=== PATIENT | male | born 1985 | race Caucasian/White ===

== ENCOUNTER 2017-02-08 12:14 | Emergency (ER) | payer OTHER ==
[2017-02-08 12:22] VITALS: BP 114/71
--- NOTE | 2017-02-08 13:32 | ED Physician Documentation ---
PD HPI MALE - Stated complaint Stated Complaint: LOWER ABD PX - Chief complaint Chief Complaint: Abd Pain - History obtained from History obtained from: Patient - History of Present Illness Timing - onset: How many months ago (2-3 months ago has noted small lump right inguinal area tender at times. It is more tender and larger the past several days. He/his thinks it is a hernia.) Timing - details: Gradual onset, Waxing and waning Associated symptoms: No: Dysuria, Genital sore / lesion, Testiclar pain, Scrotal swelling, Abdominal pain Similar symptoms before: Has not had sx before Recently seen: Not recently seen Review of Systems Constitutional: denies: Fever, Chills : denies: Dysuria, Frequency, Discharge, Testicular pain, Testicular mass Musculoskeletal: denies: Back pain PD PAST MEDICAL HISTORY - Past Medical History Past Medical History: No GI: GERD - Past Surgical History Past Surgical History: No - Present Medications Home Medications: Ambulatory Orders Medication Instructions Recorded Confirmed Gerd Medication 02/08/17 Naproxen [Naprosyn] 500 mg PO BID #20 tablet 02/08/17 Nystatin Cream [Mycostatin Cream] 1 applic TOP BID #1 tube 02/08/17 Sulfamethox/Trimeth 800/160 1 each PO BID #14 tablet 02/08/17 [Bactrim Ds 800/160] - Allergies Allergies/Adverse Reactions: Allergies Allergy/AdvReac Type Severity Reaction Status Date / Time No Known Drug Allergies Allergy Verified 02/08/17 12:22 - Social History Does the pt smoke?: No Smoking Status: Never smoker Does the pt drink ETOH?: No Does the pt have substance abuse?: No - Immunizations Immunizations are current?: Yes PD ED PE NORMAL - Vitals Vital signs reviewed: Yes - General General: Alert and oriented X 3, No acute distress, Well developed/nourished - Abdomen Abdomen: Soft, Non tender - Male Male : Other (testicles and scrotum not tender. Inguinal area with some redness in crease. I feel adenopathy in inguinal area and crural area, with redness and induration. No fluctuance. I don't feel hernia per se (in standing position).) Results - Rads (name of study) U/S Radiology: Prelim report reviewed (no hernia) PD MEDICAL DECISION MAKING - ED course Complexity details: reviewed results (U/S shows no hernia nor any report of abscess. ), considered differential, d/w patient Departure - Departure Disposition: 01 Home, Self Care Clinical Impression: Skin infection Inguinal pain Qualifiers: Laterality: right Qualified Code(s): R10.31 - Right lower quadrant pain Clinical Impression: (Ruled Out): Inguinal hernia Condition: Stable Record reviewed to determine appropriate education?: Yes Instructions: ED Infec Skin Cellulitis Follow-Up: Tony Smith MD [Primary Care Provider] - Prescriptions: Naproxen [Naprosyn] 500 mg PO BID #20 tablet Nystatin Cream [Mycostatin Cream] 1 applic TOP BID #1 tube Sulfamethox/Trimeth 800/160 [Bactrim Ds 800/160] 1 each PO BID #14 tablet Comments: The ultrasound did not show any hernia. It did not show an abscess. There is redness tenderness and swelling however in the area and so looks like a skin infection with underlying inflammation. Will use some antibiotics and anti- inflammatories orally. The redness in the crease appears likely to be a yeast infection initially and so some topical antifungal. Recheck if not improved over the next 2-3 days. Use some warm towels to the area to increase blood flow and promote healing. Discharge Date/Time: 02/08/17 15:25
[2017-02-08] MEDS ORDERED: SULFAMETH/TRIMETH DS 800/160 MG TABLET PO STA (14:04)
[2017-02-08] MEDS ORDERED: IBUPROFEN 600 MG TABLET PO STA (14:04)
[2017-02-08] MEDS ORDERED: SULFAMETH/TRIMETH DS 800/160 MG TABLET PO ONE (14:20)
[2017-02-08] MEDS ORDERED: IBUPROFEN 600 MG TABLET PO ONE (14:20)
--- NOTE | 2017-02-10 12:17 | Ultrasound Report ---
RIGHT INGUINAL ULTRASOUND: 02/08/2017 COMPARISON: No comparisons. INDICATION: Right inguinal swelling and tenderness. Rule out hernia. TECHNIQUE: Sonographic evaluation of the right inguinal region was performed. FINDINGS: No evidence of hernia. No mass or adenopathy demonstrated. No soft tissue swelling is se en. IMPRESSION: NO EVIDENCE OF INGUINAL HERNIA. JOB #: [id number] EXT JOB #:[id number]
== END 2017-02-08 15:25 | disposition home or self-care (01) ==
LOC: ED 12:14
DX: R10.31 Right lower quadrant pain (principal); L98.9 Disorder of the skin and subcutaneous tissue, unspecified; K21.9 Gastro-esophageal reflux disease without esophagitis
CPT/HCPCS: 76705; 99283; A9270

== ENCOUNTER 2017-04-21 10:16 | Emergency (ER) | payer OTHER ==
[2017-04-21] MEDS ORDERED: ONDANSETRON 4 MG/2 ML VIAL IVP STA (10:48)
[2017-04-21] MEDS ORDERED: FAMOTIDINE 20 MG/50 ML 50 ML IV ONE (10:48)
--- NOTE | 2017-04-21 10:50 | ED Physician Documentation ---
History of Present Illness - Stated complaint Stated Complaint: VOMITTIN,DIARRHEA,ABD PX - Chief complaint Chief Complaint: Abd Pain - Additonal information Additional information: hx from pt 31 male healthy except GERD no prior surgeries NVD q10 min since 9PM last night no blood in vomit or diarrhea burning upper abd pain no fever no bad food no travel no sick contacts no recent ab Review of Systems Constitutional: denies: Fever Cardiac: denies: Chest pain / pressure Respiratory: denies: Dyspnea GI: reports: Abdominal Pain, Nausea, Vomiting, Diarrhea Musculoskeletal: denies: Back pain Endocrine: denies: Easy bruising / bleeding Immunocompromised: denies: Immunocompromised PD PAST MEDICAL HISTORY - Past Medical History GI: GERD - Past Surgical History Past Surgical History: No - Present Medications Home Medications: Ambulatory Orders Medication Instructions Recorded Confirmed Ondansetron Odt [Zofran] 4 mg TL Q6H PRN #10 tablet 04/21/17 Ranitidine HCl [Acid Sample Cutter] 150 mg PO BID 04/21/17 04/21/17 Sucralfate 1 gm PO ACHS #120 tablet 04/21/17 raNITIdine [Zantac] 150 mg PO BID #60 tablet 04/21/17 - Allergies Allergies/Adverse Reactions: Allergies Allergy/AdvReac Type Severity Reaction Status Date / Time No Known Drug Allergies Allergy Verified 02/08/17 12:22 - Social History Does the pt smoke?: No Smoking Status: Never smoker Does the pt drink ETOH?: No Does the pt have substance abuse?: No - Immunizations Immunizations are current?: Yes PD ED PE NORMAL - Vitals Vital signs reviewed: Yes - General General: Alert and oriented X 3 - HEENT HEENT: PERRL - Neck Neck: Supple, no meningeal sign - Cardiac Cardiac: RRR - Respiratory Respiratory: No respiratory distress, Clear bilaterally - Abdomen Abdomen: Soft, Other (mod TTP mid epigastric and less so diffusely, no rebound or guarding) - Derm Derm: Normal color - Neuro Neuro: Alert and oriented X 3 Results - Vitals Vitals: Vital Signs - 24 hr 04/21/17 04/21/17 10:21 12:21 Temperature 35.9 C L 37.1 C Heart Rate 93 87 Respiratory 22 18 Rate Blood Pressure 155/95 H 122/73 O2 Saturation 100 98 Oxygen O2 Source Room air - Labs Labs: Laboratory Tests 04/21/17 04/21/17 10:30 10:30 WBC 18.7 H RBC 5.21 Hgb 15.9 Hct 46.8 MCV 89.8 MCH 30.4 MCHC 33.9 RDW 13.6 Plt Count 345 MPV 8.1 Neut # 16.6 H Lymph # 1.3 L [place] # 0.6 Eos # 0.1 Baso # 0.1 Absolute Nucleated RBC 0.01 Nucleated RBC % 0.1 Sodium 138 Potassium 3.8 Chloride 102 Carbon Dioxide 22 Anion Gap 14.0 H BUN 16 Creatinine 1.1 Estimated GFR (MDRD) 78 L Glucose 161 H Calcium 9.9 Total Bilirubin 1.1 H AST 26 ALT 29 Alkaline Phosphatase 81 Total Protein 9.1 H Albumin 5.2 Globulin 3.9 Albumin/Globulin Ratio 1.3 Lipase 19 L - Rads (name of study) abd sono Radiology: See rad report (mild hepatic steatosis) PD MEDICAL DECISION MAKING - ED course ED course: sounds like acute viral AGE diffuse TTP s surgical peritoneal findings got a ruq sono to rule out biliary dz and it is fine WBC noted - can be c/w viral infection too elev glucose likely stress rxn needs fup fasting FSBS Departure - Departure Disposition: 01 Home, Self Care Clinical Impression: Gastroenteritis Condition: Good Instructions: ED Gastroenteritis Vs Food Poison Prescriptions: Ondansetron Odt [Zofran] 4 mg TL Q6H PRN #10 tablet PRN Reason: Nausea / Vomiting raNITIdine [Zantac] 150 mg PO BID #60 tablet Sucralfate 1 gm PO ACHS #120 tablet Comments: Your labs were fine except for an elevated white blood cell count which is consistent with an infection and an elevated glucose which is likely a stress reaction due you being sick. I would like you to please follow up with your PMD to recheck the glucose level when you are feeling better The ultrasound was fine too. I think you have a viral stomach flu. Now that you are feeling better I think it is OK for you to go home with medications t ease your sympotms. Please drink lots of fluids and rest as much as possible. Follow up with your PMD for a recheck if not better by tomorrow. Return to the ER if worse Forms: Activity restrictions
[2017-04-21 10:55] LABS: BASOPHILS # (AUTO) 0.1 10^3/uL (0.0-0.1); BASOPHILS % (AUTO) 0.5 %; EOSINOPHILS # (AUTO) 0.1 10^3/uL (0.0-0.7); EOSINOPHILS % (AUTO) 0.3 %; HGB - HEMOGLOBIN 15.9 g/dL (14.0-18.0); LYMPHOCYTES # (AUTO) 1.3 10^3/uL (1.5-3.5); MEAN CORPUSCULAR HEMOGLOBIN 30.4 pg (27.0-31.0); MEAN CORPUSCULAR HGB CONC 33.9 g/dL (32.0-36.0); MEAN CORPUSCULAR VOLUME 89.8 fL (80.0-94.0); MEAN PLATELET VOLUME 8.1 fL (7.4-11.4); MONOCYTES # (AUTO) 0.6 10^3/uL (0.0-1.0); MONOCYTES % (AUTO) 3.1 %; NEUTROPHILS # (AUTO) 16.6 10^3/uL (1.5-6.6); NEUTROPHILS % (AUTO) 89.1 %; PLT - PLATELET COUNT 345 10^3/uL (130-450); RED BLOOD COUNT 5.21 10^6/uL (4.70-6.10); RED CELL DISTRIBUTION WIDTH 13.6 % (12.0-15.0); WHITE BLOOD COUNT 18.7 x10^3/uL (4.8-10.8)
[2017-04-21] MEDS ORDERED: SODIUM CHLORIDE 0.9% 1,000 ML IV ONE (10:56)
[2017-04-21 11:06] LABS: ALBUMIN 5.2 g/dL (3.2-5.5); ALBUMIN/GLOBULIN RATIO 1.3 (1.0-2.2); BILIRUBIN,TOTAL 1.1 mg/dL (0.2-1.0); CALCIUM 9.9 mg/dL (8.5-10.3); CREATININE 1.1 mg/dL (0.6-1.2); TOTAL PROTEIN 9.1 g/dL (6.7-8.2)
[2017-04-21 12:22] VITALS: BP 122/73
--- NOTE | 2017-04-22 11:41 | Ultrasound Report ---
DATE OF SERVICE: 04/21/2017 RIGHT UPPER QUADRANT ULTRASOUND: 04/21/2017 COMPARISON: No similar studies for comparison. INDICATION: Upper abdominal pain and vomiting. TECHNIQUE: Sonographic evaluation of the right upper quadrant was performed. FINDINGS: The liver is slightly echogenic and heterogeneous. Normal hepatic contour without visualized masses. Portal venous flow is directed toward the liver. There is no ascites. The gallbladder appears unremarkable without stones, wall thickening, or adjacent fluid. The pancreas is not well evaluated due to overlying bowel gas. The right kidney appears grossly unremarkable without evidence of hydronephrosis. IMPRESSION: MILD HEPATIC STEATOSIS. OTHERWISE NEGATIVE RIGHT UPPER QUADRANT ULTRASOUND. TD: 04/21/2017 14:07 HERMES
== END 2017-04-21 12:56 | disposition home or self-care (01) ==
LOC: ED 10:16
DX: K52.9 Noninfective gastroenteritis and colitis, unspecified (principal); K21.9 Gastro-esophageal reflux disease without esophagitis
CPT/HCPCS: 36415; 76705; 80053; 83690; 85025; 96361; 96365; 96375; 99283

== ENCOUNTER 2017-07-23 20:03 | Emergency (ER) | payer OTHER ==
[2017-07-23] MEDS ORDERED: HYDROcod/ACET 5/325 Prepack 4 PO STA (20:44)
[2017-07-23] MEDS ORDERED: KETOROLAC 60 MG/2 ML VIAL IM STA (20:44)
[2017-07-23] MEDS ORDERED: HYDROmorphone 1 MG/ML CARPUJECT IM STA (20:44)
--- NOTE | 2017-07-23 20:47 | ED Physician Documentation ---
PD HPI BACK INJURY - Stated complaint Stated Complaint: BACK PX - History obtained from History obtained from: Patient - History of Present Illness Location: Other (He pulled his back while lifting something at work yesterday and has had increasing mid back pain ever since that does not radiate. There is no weakness, numbness, or tingling of the extremities or saddle area, no incontinence or fevers. He does not have a history of back pain.) Review of Systems Constitutional: reports: Reviewed and negative Cardiac: denies: Chest pain / pressure, Palpitations Respiratory: denies: Dyspnea, Cough GI: denies: Abdominal Pain, Nausea, Vomiting PD PAST MEDICAL HISTORY - Past Medical History GI: GERD - Past Surgical History Past Surgical History: No - Present Medications Home Medications: Ambulatory Orders Medication Instructions Recorded Confirmed Ondansetron Odt [Zofran] 4 mg TL Q6H PRN #10 tablet 04/21/17 Ranitidine HCl [Acid Viscera Washer] 150 mg PO BID 04/21/17 04/21/17 Sucralfate 1 gm PO ACHS #120 tablet 04/21/17 raNITIdine [Zantac] 150 mg PO BID #60 tablet 04/21/17 Cyclobenzaprine [Flexeril] 10 mg PO TID PRN #20 tablet 07/23/17 HYDROcod/ACETAM 5/325 [[place] 5/325] 1 - 2 ea PO Q6H PRN #15 tablet 07/23/17 - Allergies Allergies/Adverse Reactions: Allergies Allergy/AdvReac Type Severity Reaction Status Date / Time No Known Drug Allergies Allergy Verified 07/23/17 20:10 - Social History Does the pt smoke?: No Smoking Status: Never smoker Does the pt drink ETOH?: No Does the pt have substance abuse?: No - Immunizations Immunizations are current?: Yes PD ED PE NORMAL - Vitals Vital signs reviewed: Yes - General General: Alert and oriented X 3, No acute distress, Other (Uncomfortable, especially with motion) - Neck Neck: Supple, no meningeal sign, No bony TTP - Cardiac Cardiac: RRR, No murmur - Respiratory Respiratory: No respiratory distress, Clear bilaterally - Abdomen Abdomen: Non tender - Back Back: No spinal TTP, Other (He has palpable rhomboid muscle spasm and tenderness bilaterally) - Extremities Extremities: Other (The patient has equal and normal Achilles and patellar reflexes bilaterally. Normal sensation in all areas of the legs. Patient denies saddle anesthesia. Normal strength in flexion-extension at the ankles, knees, and flexion of the hips.) - Neuro Neuro: Alert and oriented X 3, Normal speech Results - Vitals Vitals: Vital Signs - 24 hr 07/23/17 20:06 Temperature 36.9 C Heart Rate 64 Respiratory 18 Rate Blood Pressure 134/84 H O2 Saturation 98 Oxygen O2 Source Room air PD MEDICAL DECISION MAKING - ED course ED course: This patient has seemingly uncomplicated musculoskeletal back pain. The patient has no "red flags." Specifically denies IV drug use, fevers, incontinence, saddle anesthesia. Spinal epidural abscess was considered, given that the patient has no fever, is not diabetic, has no spinal tenderness, does not use IV drugs, and has no bilateral neurologic symptoms, the diagnosis of spinal epidural abscess is considered exceedingly unlikely. Departure - Departure Disposition: 01 Home, Self Care Clinical Impression: Spasm of thoracic back muscle Condition: Good Record reviewed to determine appropriate education?: Yes Instructions: ED Spasm Back No Trauma Prescriptions: Cyclobenzaprine [Flexeril] 10 mg PO TID PRN #20 tablet PRN Reason: Pain HYDROcod/ACETAM 5/325 [[place] 5/325] 1 - 2 ea PO Q6H PRN #15 tablet PRN Reason: Pain Comments: Call your doctor to arrange a follow-up appointment, make the next available appointment. In the interim, return anytime if worse or if new symptoms develop. Do not drink or drive while taking narcotic pain medication. Note that many narcotic pain relievers also contain Tylenol/acetaminophen. Please ensure that your total dose of acetaminophen from all sources does not exceed 3 g (3000 mg) per day. You may get constipated while on this medication. Take a stool softener such as Colace twice a day while you are on it. Also add an [id number] laxative such as senna or MiraLAX on any day that you do not have a bowel movement. If you received a narcotic pain medication or sedative while in the emergency department, do not drive for the next 24 hours. Your blood pressure was elevated today on check into the emergency department. This does not mean that you have hypertension, it is a common phenomenon to come to the emergency department and have elevated blood pressure. I recommend that you see your primary care physician within the week to have it rechecked when you are feeling better. Forms: Activity restrictions
[2017-07-23 21:16] VITALS: BP 144/80
== END 2017-07-23 21:22 | disposition home or self-care (01) ==
LOC: ED 20:03
DX: M62.830 Muscle spasm of back (principal); R03.0 Elevated blood-pressure reading, without diagnosis of hypertension; X50.0XXA Overexertion from strenuous movement or load, initial encounter; Y93.89 Activity, other specified; Y99.0 Civilian activity done for income or pay
CPT/HCPCS: 96372; 99283; J1170

== ENCOUNTER 2018-06-08 10:05 | Emergency (ER) | payer OTHER ==
[2018-06-08 10:43] LABS: BASOPHILS # (AUTO) 0.1 10^3/uL (0.0-0.1); EOSINOPHILS # (AUTO) 0.3 10^3/uL (0.0-0.7); EOSINOPHILS % (AUTO) 4.8 %; HGB - HEMOGLOBIN 14.2 g/dL (14.0-18.0); LYMPHOCYTES % (AUTO) 32.1 %; MEAN CORPUSCULAR HGB CONC 34.4 g/dL (32.0-36.0); MEAN PLATELET VOLUME 7.5 fL (7.4-11.4); MONOCYTES # (AUTO) 0.5 10^3/uL (0.0-1.0); MONOCYTES % (AUTO) 7.8 %; NEUTROPHILS # (AUTO) 3.5 10^3/uL (1.5-6.6); NEUTROPHILS % (AUTO) 54.3 %; PLT - PLATELET COUNT 279 10^3/uL (130-450); RED BLOOD COUNT 4.58 10^6/uL (4.70-6.10); RED CELL DISTRIBUTION WIDTH 13.6 % (12.0-15.0); WHITE BLOOD COUNT 6.4 x10^3/uL (4.8-10.8)
[2018-06-08] MEDS ORDERED: ONDANSETRON 4 MG/2 ML VIAL IVP STA (10:55)
[2018-06-08] MEDS ORDERED: PANTOPRAZOLE 40 MG VIAL IVP STA (10:55)
[2018-06-08 10:56] LABS: ALBUMIN 3.9 g/dL (3.2-5.5); ALBUMIN/GLOBULIN RATIO 1.2 (1.0-2.2); BILIRUBIN,TOTAL 0.8 mg/dL (0.2-1.0); CALCIUM 9.1 mg/dL (8.5-10.3); CREATININE 0.8 mg/dL (0.6-1.2); TOTAL PROTEIN 7.1 g/dL (6.7-8.2)
[2018-06-08] MEDS ORDERED: LIDOCAINE VISCOUS 2% 15 ML UDC MM STA (10:57)
[2018-06-08] MEDS ORDERED: SUCRALFATE 1 GM/10 ML UDC PO STA (10:57)
[2018-06-08] MEDS ORDERED: PHENobarb/HYOSCY/ATROPINE/SCOP 5 ML UDC PO STA (10:57)
--- NOTE | 2018-06-08 10:58 | ED Physician Documentation ---
PD HPI ABD PAIN - Stated complaint Stated Complaint: ABD PX - Chief complaint Chief Complaint: Abd Pain - History obtained from History obtained from: Patient, Family - History of Present Illness Timing - onset: Other (Several months ago) Timing - details: Gradual onset, Intermittant Pain level max: 8 Pain level now: 2 Quality: Aching, Pain Location: Epigastric Radiation: Chest Improved by: Other (nothing) Worsened by: Eating, Other (lying down) Associated symptoms: No: Fever, Nausea, Vomiting, Hematemesis, Diarrhea, Constipation, Melena, Hematochezia, Dysuria Similar symptoms before: Diagnosis (States diagnosed with GERD and had erosions in esophagus and stomach on endoscopy last year. He is currently on Zantac.) - Additional information Additional information: Epigastric abdominal pain for the past several months. Worse at night with lying down. Worse with eating. Review of Systems Constitutional: denies: Fever, Chills Throat: denies: Sore throat Cardiac: denies: Chest pain / pressure Respiratory: denies: Cough GI: denies: Nausea, Vomiting, Diarrhea Skin: denies: Rash Musculoskeletal: denies: Neck pain, Back pain Neurologic: denies: Headache PD PAST MEDICAL HISTORY - Past Medical History Past Medical History: Yes Cardiovascular: None Respiratory: None Neuro: None Endocrine/Autoimmune: None GI: GERD : None HEENT: None Psych: None Musculoskeletal: None Derm: None - Past Surgical History Past Surgical History: No - Present Medications Home Medications: Ambulatory Orders Medication Instructions Recorded Confirmed raNITIdine [Zantac] 150 mg PO BID #60 tablet 04/21/17 06/08/18 Esomeprazole Magnesium [Nexium] 40 mg PO DAILY #30 capsule. 06/08/18 - Allergies Allergies/Adverse Reactions: Allergies Allergy/AdvReac Type Severity Reaction Status Date / Time No Known Drug Allergies Allergy Verified 06/08/18 10:18 - Social History Does the pt smoke?: No Smoking Status: Never smoker Does the pt drink ETOH?: No Does the pt have substance abuse?: No - Immunizations Immunizations are current?: Yes - POLST Patient has POLST: No PD ED PE NORMAL - Vitals Vital signs reviewed: Yes - General General: Alert and oriented X 3, No acute distress - HEENT HEENT: Moist mucous membranes - Neck Neck: Supple, no meningeal sign - Cardiac Cardiac: RRR - Respiratory Respiratory: No respiratory distress, Clear bilaterally - Abdomen Abdomen: Soft, Non tender, Non distended - Back Back: No CVA TTP, No spinal TTP - Derm Derm: Warm and dry, No rash - Extremities Extremities: No edema - Neuro Neuro: Alert and oriented X 3 Results - Vitals Vitals: Vital Signs - 24 hr 06/08/18 06/08/18 10:15 12:05 Temperature 36.0 C L Heart Rate 53 L 60 Respiratory 14 16 Rate Blood Pressure 122/85 H 115/71 O2 Saturation 97 98 Oxygen O2 Source Room air - Labs Labs: Laboratory Tests 06/08/18 06/08/18 06/08/18 10:35 10:35 12:24 WBC 6.4 RBC 4.58 L Hgb 14.2 Hct 41.2 L MCV 90.0 MCH 31.0 MCHC 34.4 RDW 13.6 Plt Count 279 MPV 7.5 Neut # (Auto) 3.5 Lymph # (Auto) 2.0 [place] # (Auto) 0.5 Eos # (Auto) 0.3 Baso # (Auto) 0.1 Absolute Nucleated RBC 0.00 Nucleated RBC % 0.0 Sodium 138 Potassium 3.8 Chloride 103 Carbon Dioxide 25 Anion Gap 10.0 BUN 11 Creatinine 0.8 Estimated GFR (MDRD) 111 Glucose 85 Calcium 9.1 Total Bilirubin 0.8 AST 31 ALT 50 Alkaline Phosphatase 69 Total Protein 7.1 Albumin 3.9 Globulin 3.2 Albumin/Globulin Ratio 1.2 Lipase 40 Urine Color YELLOW Urine Clarity CLEAR Urine pH 6.5 Ur Specific [place] 1.015 Urine Protein NEGATIVE Urine Glucose (UA) NEGATIVE Urine Ketones NEGATIVE Urine Occult Blood NEGATIVE Urine Nitrite NEGATIVE Urine Bilirubin NEGATIVE Urine Urobilinogen 0.2 (NORMAL) Ur Leukocyte Esterase NEGATIVE Ur Microscopic Review NOT INDICATED Urine Culture Comments NOT INDICATED PD MEDICAL DECISION MAKING - ED course Complexity details: reviewed results, re-evaluated patient, considered differential, d/w patient, d/w family ED course: 32-year-old male with epigastric pain similar to his past diagnosis of gastritis. Feels better after GI cocktail. Tolerating p.o. without difficulty. Given Protonix IV. Will add a PPI for home. He is well-appearing, nontoxic. Normal laboratory testing. Patient counseled regarding signs and symptoms for which I believe and urgent re-evaluation would be necessary. Patient with good understanding of and agreement to plan and is comfortable going home at this time This document was made in part using voice recognition software. While efforts are made to proofread this document, sound alike and grammatical errors may occur. Departure - Departure Disposition: 01 Home, Self Care Clinical Impression: Gastritis Qualifiers: Gastritis type: unspecified gastritis Chronicity: chronic Gastritis bleeding: without bleeding Qualified Code(s): K29.50 - Unspecified chronic gastritis without bleeding Condition: Good Instructions: ED Gastritis Follow-Up: Provider,Other [Primary Care Provider] - Within 1 week Prescriptions: Esomeprazole Magnesium [Nexium] 40 mg PO DAILY #30 capsule. Comments: Return if you worsen. Avoid fried or spicy foods. avoid alcohol and caffeine. Forms: Activity restrictions Discharge Date/Time: 06/08/18 13:06
[2018-06-08 12:35] VITALS: BP 115/71
[2018-06-08 12:37] LABS: BILIRUBIN,URINE NEGATIVE (NEGATIVE); CLARITY,URINE CLEAR (CLEAR); GLUCOSE, URINE (UA) NEGATIVE (NEGATIVE); KETONES,URINE (UA) NEGATIVE (NEGATIVE); LEUKOCYTE ESTERASE, URINE NEGATIVE (NEGATIVE); NITRITE,URINE NEGATIVE (NEGATIVE); OCCULT BLOOD,URINE NEGATIVE (NEGATIVE); PH,URINE 6.5 PH (5.0-7.5); PROTEIN,URINE NEGATIVE (NEGATIVE); UROBILINOGEN,URINE 0.2 (NORMAL) E.U./dL (NORMAL)
== END 2018-06-08 13:06 | disposition home or self-care (01) ==
LOC: ED 10:05
DX: K29.50 Unspecified chronic gastritis without bleeding (principal)
CPT/HCPCS: 36415; 80053; 81001; 81003; 83690; 85025; 87086; 96374; 99283

== ENCOUNTER 2018-06-13 18:54 | Emergency (ER) | payer OTHER ==
[2018-06-13 18:58] VITALS: BP 136/80
[2018-06-13] MEDS ORDERED: MAG HYDROX/AL HYDROX/SIMETH 30 ML UDC PO STA (19:04)
[2018-06-13] MEDS ORDERED: MORPHINE 2 MG/ML CARPUJECT IVP STA ×2 (19:04→20:13)
[2018-06-13] MEDS ORDERED: LIDOCAINE VISCOUS 2% 15 ML UDC MM STA (19:04)
[2018-06-13] MEDS ORDERED: PANTOPRAZOLE 40 MG VIAL IVP STA (19:04)
[2018-06-13] MEDS ORDERED: SODIUM CHLORIDE 0.9% 1,000 ML IV ONE (19:04)
[2018-06-13] MEDS ORDERED: ONDANSETRON 4 MG/2 ML VIAL IVP STA (19:04)
--- NOTE | 2018-06-13 19:06 | ED Physician Documentation ---
PD HPI ABD PAIN - Stated complaint Stated Complaint: AB PX - Chief complaint Chief Complaint: Abd Pain - History obtained from History obtained from: Patient - History of Present Illness Timing - onset: Today (This is a 32-year-old gentleman with history of gastritis and GERD proven on upper endoscopy last year in [place] per him who was seen here about a week ago for any gastritis flare. He was prescribed a PPI which she has not been able to pickle cutter yet. He has had sudden severe epigastric pain with vomiting this afternoon. He has been on and off constipated. He has no history of abdominal surgeries.) Review of Systems Constitutional: reports: Sweats. denies: Fever, Chills Cardiac: denies: Chest pain / pressure, Palpitations Respiratory: denies: Dyspnea, Cough PD PAST MEDICAL HISTORY - Past Medical History Cardiovascular: None Respiratory: None Neuro: None Endocrine/Autoimmune: None GI: GERD : None HEENT: None Psych: None Musculoskeletal: None Derm: None - Past Surgical History Past Surgical History: No - Present Medications Home Medications: Ambulatory Orders Medication Instructions Recorded Confirmed raNITIdine [Zantac] 150 mg PO BID #60 tablet 04/21/17 06/08/18 Esomeprazole Magnesium [Nexium] 40 mg PO DAILY #30 capsule. 06/08/18 Hydrocodone/Acetaminophen 1 - 2 each PO Q6H PRN #10 tablet 06/13/18 [Hydrocodon-Acetaminophen 5-325] Ondansetron Odt [Zofran] 4 mg TL Q6H PRN #10 tablet 06/13/18 Sucralfate [Carafate] 1 gm PO ACHS #60 tablet 06/13/18 - Allergies Allergies/Adverse Reactions: Allergies Allergy/AdvReac Type Severity Reaction Status Date / Time No Known Drug Allergies Allergy Verified 06/08/18 10:18 - Social History Does the pt smoke?: No Smoking Status: Never smoker Does the pt drink ETOH?: No Does the pt have substance abuse?: No - Immunizations Immunizations are current?: Yes - POLST Patient has POLST: No PD ED PE NORMAL - Vitals Vital signs reviewed: Yes - General General: Alert and oriented X 3, Other (He appears uncomfortable and is retching) - HEENT HEENT: PERRL, EOMI - Neck Neck: Supple, no meningeal sign, No bony TTP - Cardiac Cardiac: RRR, No murmur - Respiratory Respiratory: No respiratory distress, Clear bilaterally - Abdomen Abdomen: Normal bowel sounds, Soft, Other (Mild diffuse tenderness without surgical signs) - Back Back: No CVA TTP, No spinal TTP - Derm Derm: Normal color, Warm and dry - Extremities Extremities: No edema, No calf tenderness / cord - Neuro Neuro: Alert and oriented X 3, Normal speech Results - Vitals Vitals: Vital Signs - 24 hr 06/13/18 18:56 Temperature 35.9 C L Heart Rate 69 Respiratory 18 Rate Blood Pressure 136/80 H O2 Saturation 100 Oxygen O2 Source Room air - Labs Labs: Laboratory Tests 06/13/18 06/13/18 06/13/18 19:20 19:20 19:20 WBC 9.5 RBC 4.71 Hgb 14.4 Hct 42.7 MCV 90.6 MCH 30.7 MCHC 33.9 RDW 13.8 Plt Count 286 MPV 7.8 Neut # (Auto) 7.2 H Lymph # (Auto) 1.6 [place] # (Auto) 0.5 Eos # (Auto) 0.1 Baso # (Auto) 0.1 Absolute Nucleated RBC 0.00 Nucleated RBC % 0.0 Sodium 138 Potassium 3.6 Chloride 103 Carbon Dioxide 24 Anion Gap 11.0 BUN 15 Creatinine 0.8 Estimated GFR (MDRD) 111 Glucose 124 H Calcium 9.5 Total Bilirubin 0.7 AST 32 ALT 54 Alkaline Phosphatase 70 Troponin I < 0.04 Total Protein 8.1 Albumin 4.7 Globulin 3.4 Albumin/Globulin Ratio 1.4 Lipase 32 PD MEDICAL DECISION MAKING - ED course ED course: This is a 32-year-old gentleman with history of gastritis who presents with apparent exacerbation of same. He was treated with a GI cocktail and a small amount of morphine with improvement but the pain did move down a little bit so CT was done to evaluate for potential appendicitis given the mild left shift on his CBC and this was negative. Departure - Departure Disposition: 01 Home, Self Care Clinical Impression: Abdominal pain, Gastroesophageal reflux disease Condition: Good Record reviewed to determine appropriate education?: Yes Instructions: ED GERD Prescriptions: Hydrocodone/Acetaminophen [Hydrocodon-Acetaminophen 5-325] 1 - 2 each PO Q6H PRN #10 tablet PRN Reason: pain Ondansetron Odt [Zofran] 4 mg TL Q6H PRN #10 tablet PRN Reason: Nausea / Vomiting Sucralfate [Carafate] 1 gm PO ACHS #60 tablet Comments: You need to fill the previous prescription for his omeprazole tomorrow. You can also fill the other medication that I am giving you to coat your stomach. This medication, the pink large pill should be taken at least half an hour separate from other pills. Your blood pressure was elevated today on check into the emergency department. This does not mean that you have hypertension, it is a common phenomenon to come to the emergency department and have elevated blood pressure. I recommend that you see your primary care physician within the week to have it rechecked when you are feeling better. Do not drink or drive while taking narcotic pain medication. Note that many narcotic pain relievers also contain Tylenol/acetaminophen. Please ensure that your total dose of acetaminophen from all sources does not exceed 3 g (3000 mg) per day. You may get constipated while on this medication. Take a stool softener such as Colace twice a day while you are on it. Also add an [id number] laxative such as senna or MiraLAX on any day that you do not have a bowel movement. If you received a narcotic pain medication or sedative while in the emergency department, do not drive for the next 24 hours.
[2018-06-13 19:33] LABS: BASOPHILS # (AUTO) 0.1 10^3/uL (0.0-0.1); BASOPHILS % (AUTO) 0.8 %; EOSINOPHILS # (AUTO) 0.1 10^3/uL (0.0-0.7); EOSINOPHILS % (AUTO) 0.9 %; HGB - HEMOGLOBIN 14.4 g/dL (14.0-18.0); LYMPHOCYTES # (AUTO) 1.6 10^3/uL (1.5-3.5); LYMPHOCYTES % (AUTO) 17.1 %; MEAN CORPUSCULAR HEMOGLOBIN 30.7 pg (27.0-31.0); MEAN CORPUSCULAR HGB CONC 33.9 g/dL (32.0-36.0); MEAN CORPUSCULAR VOLUME 90.6 fL (80.0-94.0); MEAN PLATELET VOLUME 7.8 fL (7.4-11.4); MONOCYTES # (AUTO) 0.5 10^3/uL (0.0-1.0); MONOCYTES % (AUTO) 5.2 %; NEUTROPHILS # (AUTO) 7.2 10^3/uL (1.5-6.6); PLT - PLATELET COUNT 286 10^3/uL (130-450); RED BLOOD COUNT 4.71 10^6/uL (4.70-6.10); RED CELL DISTRIBUTION WIDTH 13.8 % (12.0-15.0); WHITE BLOOD COUNT 9.5 x10^3/uL (4.8-10.8)
[2018-06-13 20:01] LABS: ALBUMIN 4.7 g/dL (3.2-5.5); ALBUMIN/GLOBULIN RATIO 1.4 (1.0-2.2); BILIRUBIN,TOTAL 0.7 mg/dL (0.2-1.0); CALCIUM 9.5 mg/dL (8.5-10.3); CREATININE 0.8 mg/dL (0.6-1.2); TOTAL PROTEIN 8.1 g/dL (6.7-8.2)
[2018-06-13] MEDS ORDERED: IOVERSOL 320 100 ML VIAL IVP ONE ×2 (20:54→21:03)
--- NOTE | 2018-06-13 21:44 | CT Report ---
Reason: IV only, abd pain Procedure Date: 06/13/2018 Accession Number: [id number] / [id number] Procedure: CT - Abdomen/Pelvis W CPT Code: FULL RESULT: EXAM: CT ABDOMEN AND PELVIS EXAM DATE: 06/13/2018 08:55 PM. CLINICAL HISTORY: Abdominal pain. COMPARISONS: ABDOMEN LIMITED 04/21/2017 11:30 AM. TECHNIQUE: Routine helical CT imaging was performed through the abdomen and pelvis. IV contrast: opti 320 100mL. Enteric contrast: No. Reconstructions: Coronal and sagittal. In accordance with CT protocol optimization, one or more of the following dose reduction techniques were utilized for this exam: automated exposure control, adjustment of mA and/or KV based on patient size, or use of iterative reconstructive technique. FINDINGS: Lung Bases: Unremarkable. Liver: Normal size and contour. Mild fatty infiltration with focal fatty sparing at the gallbladder fossa. Gallbladder/Bile Ducts: Unremarkable. Spleen: Normal. Pancreas: Normal. Adrenal Glands: Normal. Kidneys: Normal. No masses or hydronephrosis. Peritoneal Cavity/Bowel: Unopacified stomach and small bowel are nondistended and unremarkable. The appendix is normal. There is a minimal amount of formed stool in the colon. There is minimal scattered diverticulosis. There is no focal pericolonic fat stranding. There is no lymphadenopathy, ascites, or pneumoperitoneum. Pelvic Organs: The bladder, prostate gland, and seminal vesicles are unremarkable. Vasculature: No aneurysms or other significant abnormality. Bones: No significant abnormality. Other: Abdominal wall is unremarkable. IMPRESSION: Negative CT abdomen and pelvis without findings to explain pain. RADIA
[2018-06-13] MEDS ORDERED: ONDANSETRON ODT 4 MG Prepack 2 TL STA (21:50)
[2018-06-13] MEDS ORDERED: HYDROcod/ACET 5/325 Prepack 4 PO STA (21:50)
== END 2018-06-14 02:19 | disposition home or self-care (01) ==
LOC: ED 18:54
DX: K21.9 Gastro-esophageal reflux disease without esophagitis (principal); R03.0 Elevated blood-pressure reading, without diagnosis of hypertension
CPT/HCPCS: 36415; 74177; 80053; 83690; 84484; 85025; 96374; 96375; 96376; 99283; A9270; Q9967

== ENCOUNTER 2018-09-21 10:46 | Emergency (ER) | payer OTHER ==
[2018-09-21 10:53] VITALS: BP 129/86
[2018-09-21] MEDS ORDERED: LIDOCAINE PATCH 5% TOP STA (11:22)
[2018-09-21] MEDS ORDERED: KETOROLAC 30 MG/ML VIAL IVP STA (11:22)
--- NOTE | 2018-09-21 11:33 | XRAY Report ---
Reason: rib pain, fall Procedure Date: 09/21/2018 Accession Number: [id number] / [id number] Procedure: XR - Ribs w/PA Chest LT CPT Code: FULL RESULT: EXAM: LEFT RIB RADIOGRAPHY EXAM DATE: 09/21/2018 11:20 AM. CLINICAL HISTORY: Rib pain, fall. COMPARISON: None. TECHNIQUE: 1 view of the chest and 2 views of the ribs. FINDINGS: Bones: No definite fracture is identified. Lungs: No focal opacities. No pneumothorax. No pleural effusions. Mediastinum: Heart and mediastinal contours are unremarkable. Other: None. IMPRESSION: Normal chest and rib radiography. RADIA
--- NOTE | 2018-09-21 12:11 | ED Physician Documentation ---
PD HPI Fall - Stated complaint Stated Complaint: BACK PAIN - Chief complaint Chief Complaint: Back Pain - History obtained from History obtained from: Patient - History of Present Illness Mechanism of injury: Tripped Fall distance: Other (fell onto the side of a alfredo couch at home when he tripped) Where injury occurred: Home Timing - onset: Yesterday Injury(ies) location: Chest, Back (left flank), Other Pain level max: 9 Pain level now: 9 Quality of pain: Pain, Aching Associated symptoms: Other (no abdominal pain, no sob, no cough. Pain is worse with deep breathing. Denies neck pain or head pain, no sob.). No: LOC, AMS, Amnesia, Neck pain, Weakness, Paresthesias, Nausea / vomiting, Abdominal distension Worsens with: Movement, Palpation, Other (deep breathing on the left) Contributing factors: No: Anticoagulated, Intoxicated Similar symptoms before: Has not had sx before Recently seen: Not recently seen Review of Systems Ten Systems: 10 systems reviewed and negative Constitutional: denies: Fever, Chills Cardiac: reports: Chest pain / pressure (left chest wall pain) Respiratory: denies: Dyspnea, Cough GI: denies: Abdominal Pain, Abdominal Swelling, Nausea, Vomiting Skin: reports: Reviewed and negative. denies: Abrasion (s), Laceration (s) Musculoskeletal: reports: Back pain. denies: Neck pain, Extremity pain, Joint pain, Extremity swelling, Joint swelling Neurologic: denies: Generalized weakness, Focal weakness, Numbness, Syncope, Headache, Head injury, LOC PD PAST MEDICAL HISTORY - Past Medical History Past Medical History: No Cardiovascular: None Respiratory: None Neuro: None Endocrine/Autoimmune: None GI: GERD : None HEENT: None Psych: None Musculoskeletal: None Derm: None - Past Surgical History Past Surgical History: No - Present Medications Home Medications: Ambulatory Orders Medication Instructions Recorded Confirmed raNITIdine [Zantac] 150 mg PO BID #60 tablet 04/21/17 06/08/18 Esomeprazole Magnesium [Nexium] 40 mg PO DAILY #30 capsule. 06/08/18 Hydrocodone/Acetaminophen 1 - 2 each PO Q6H PRN #10 tablet 06/13/18 [Hydrocodon-Acetaminophen 5-325] Ondansetron Odt [Zofran] 4 mg TL Q6H PRN #10 tablet 06/13/18 Sucralfate [Carafate] 1 gm PO ACHS #60 tablet 06/13/18 Lidocaine Patch 5% [Lidoderm Patch] 1 patch TOP DAILY PRN #10 patch 09/21/18 - Allergies Allergies/Adverse Reactions: Allergies Allergy/AdvReac Type Severity Reaction Status Date / Time No Known Drug Allergies Allergy Verified 09/21/18 10:53 - Social History Does the pt smoke?: No Smoking Status: Never smoker Does the pt drink ETOH?: No Does the pt have substance abuse?: No - Immunizations Immunizations are current?: Yes - POLST Patient has POLST: No PD ED PE NORMAL - Vitals Vital signs reviewed: Yes - General General: Alert and oriented X 3 - HEENT HEENT: Atraumatic, Pharynx benign - Neck Neck: Supple, no meningeal sign, No bony TTP - Cardiac Cardiac: RRR, No murmur, No gallop, No rub, Strong equal pulses, Other (no chest wall crepitus or stepoffs or bruises/injury on inspection. pt tender throughout L chest wall and lateral/back of chest ) - Respiratory Respiratory: No respiratory distress - Abdomen Abdomen: Soft, Non tender, Non distended - Male Male : Deferred - Rectal Rectal: Deferred - Back Back: No CVA TTP, No spinal TTP - Derm Derm: Normal color, Warm and dry, No rash, Other (no abrasions, lacerations or bruises ) - Extremities Extremities: No deformity, No tenderness to palpate, Normal ROM s pain, No edema, No calf tenderness / cord - Neuro Neuro: Alert and oriented X 3 Eye Opening: Spontaneous Motor: Obeys Commands Verbal: Oriented GCS Score: 15 - Psych Psych: Normal mood, Normal affect Results - Vitals Vitals: Vital Signs - 24 hr 09/21/18 10:51 Temperature 36.0 C L Heart Rate 68 Respiratory 14 Rate Blood Pressure 129/86 H O2 Saturation 99 Oxygen O2 Source Room air - Rads (name of study) No standard instances Radiology: Final report received (negative L chest and rib xrays ) PD MEDICAL DECISION MAKING - ED course Complexity details: reviewed results, re-evaluated patient, considered differential, d/w patient, d/w family ED course: L rib contusion, L chest wall strain/contusion, L rib fracture, pneumothorax, hemothorax 32 y/o M with minor trauma and fall on L side onto a alfredo couch. Pt then rolled from couch to floor Has no external signs of significant trauma - diffuse L chest wall and L lateral back tenderness without deformity. Normal L rib xrays and neg chest xray. Pain improved here with toradol and lidoderm patch. Given script for additional lidoderm patches. Pt instructed to use ibuprofen q 8 hours for pain but he is requesting n arcotics. I do not feel this is indicated for a chest wall contusion and pt can try the non-narcotic options and if pain persists f/u with his PCP. Departure - Departure Disposition: 01 Home, Self Care Clinical Impression: Chest wall contusion Qualifiers: Encounter type: initial encounter Laterality: left Qualified Code(s): S20.212A - Contusion of left front wall of thorax, initial encounter Condition: Stable Record reviewed to determine appropriate education?: Yes Instructions: ED Contusion Chest Wall Follow-Up: your, doctor [Other] - As Needed Prescriptions: Lidocaine Patch 5% [Lidoderm Patch] 1 patch TOP DAILY PRN #10 patch PRN Reason: pain Comments: You likely have a left chest wall contusion. No injury to your lungs or ribs were seen on the chest xray. You should take ibuprofen 600mg every 8 hours as needed for pain and can use 1 lidoderm patch daily for the area of maximal pain. Return to the ED if shortness of breath or difficulty breathing. Forms: Activity restrictions Discharge Date/Time: 09/21/18 12:17
== END 2018-09-21 12:17 | disposition home or self-care (01) ==
LOC: ED 10:46
DX: S20.212A Contusion of left front wall of thorax, initial encounter (principal); W01.190A Fall on same level from slipping, tripping and stumbling with subsequent striking against furniture, initial encounter; Y92.009 Unspecified place in unspecified non-institutional (private) residence as the place of occurrence of the external cause
CPT/HCPCS: 71101; 96374; 99283; A9270

== ENCOUNTER 2018-10-28 12:44 | Emergency (ER) | payer OTHER ==
[2018-10-28] MEDS ORDERED: ONDANSETRON ODT 4 MG TABLET TL STA (13:06)
--- NOTE | 2018-10-28 13:09 | ED Physician Documentation ---
PD HPI NVD - Stated complaint Stated Complaint: V/D - Chief complaint Chief Complaint: Abd Pain - History obtained from History obtained from: Patient - History of Present Illness Timing - onset: Yesterday Timing - duration: Days (1) Timing - details: Gradual onset Pain level max: 0 Pain level now: 0 Associated symptoms: No: Fever, Dizzy, Near syncope / syncope, Loss of appetite, Weight loss Contributing factors: Bad food (possible shrimp?). No: Sick contact, Travel, Recent antibiotics Improved by: Vomiting Worsened by: Eating Recently seen: Not recently seen Review of Systems Constitutional: denies: Fever, Chills Respiratory: denies: Cough GI: reports: Nausea, Vomiting, Diarrhea. denies: Abdominal Pain, Hematemesis, Bloody / black stool : denies: Dysuria Skin: denies: Rash PD PAST MEDICAL HISTORY - Past Medical History Cardiovascular: None Respiratory: None Neuro: None Endocrine/Autoimmune: None GI: GERD : None HEENT: None Psych: None Musculoskeletal: None Derm: None - Past Surgical History Past Surgical History: No - Present Medications Home Medications: Ambulatory Orders Medication Instructions Recorded Confirmed raNITIdine [Zantac] 150 mg PO BID #60 tablet 04/21/17 06/08/18 Esomeprazole Magnesium [Nexium] 40 mg PO DAILY #30 capsule. 06/08/18 Hydrocodone/Acetaminophen 1 - 2 each PO Q6H PRN #10 tablet 06/13/18 [Hydrocodon-Acetaminophen 5-325] Ondansetron Odt [Zofran] 4 mg TL Q6H PRN #10 tablet 06/13/18 Sucralfate [Carafate] 1 gm PO ACHS #60 tablet 06/13/18 Lidocaine Patch 5% [Lidoderm Patch] 1 patch TOP DAILY PRN #10 patch 09/21/18 Ondansetron Odt [Zofran] 4 mg TL Q6H PRN #10 tablet 10/28/18 - Allergies Allergies/Adverse Reactions: Allergies Allergy/AdvReac Type Severity Reaction Status Date / Time No Known Drug Allergies Allergy Verified 10/28/18 12:51 - Social History Does the pt smoke?: No Smoking Status: Never smoker Does the pt drink ETOH?: No Does the pt have substance abuse?: No - Immunizations Immunizations are current?: Yes - POLST Patient has POLST: No PD ED PE NORMAL - Vitals Vital signs reviewed: Yes - General General: Alert and oriented X 3, No acute distress, Well developed/nourished - HEENT HEENT: PERRL, Moist mucous membranes - Neck Neck: Supple, no meningeal sign - Cardiac Cardiac: RRR, Strong equal pulses - Respiratory Respiratory: No respiratory distress, Clear bilaterally - Abdomen Abdomen: Soft, Non tender, Non distended - Derm Derm: Warm and dry, No rash - Neuro Neuro: Alert and oriented X 3 - Psych Psych: Normal mood, Normal affect Results - Vitals Vitals: Vital Signs - 24 hr 10/28/18 12:48 Temperature 36.1 C L Heart Rate 95 Respiratory 16 Rate Blood Pressure 122/88 H O2 Saturation 96 Oxygen O2 Source Room air PD MEDICAL DECISION MAKING - ED course Complexity details: re-evaluated patient, considered differential, d/w patient ED course: 33-year-old male with a viral gastroenteritis versus food poisoning. Very well- appearing, nontoxic. Afebrile. Tolerating p.o. well after Zofran. We will continue supportive care and follow-up with his doctor. Well-hydrated. Patient counseled regarding signs and symptoms for which I believe and urgent re- evaluation would be necessary. Patient with good understanding of and agreement to plan and is comfortable going home at this time This document was made in part using voice recognition software. While efforts are made to proofread this document, sound alike and grammatical errors may occur. Departure - Departure Disposition: 01 Home, Self Care Clinical Impression: Viral gastroenteritis Condition: Good Instructions: ED Gastroenteritis Viral Follow-Up: your,doctor in 1 week [Other] Prescriptions: Ondansetron Odt [Zofran] 4 mg TL Q6H PRN #10 tablet PRN Reason: Nausea / Vomiting Comments: Return if you worsen. Go home and rest today. Drink plenty of fluids. Forms: Activity restrictions
[2018-10-28 13:41] VITALS: BP 118/85
== END 2018-10-28 13:41 | disposition home or self-care (01) ==
LOC: ED 12:44
DX: A08.4 Viral intestinal infection, unspecified (principal)
CPT/HCPCS: 99281; 99284; Q0162

== ENCOUNTER 2019-05-31 19:22 | Emergency (ER) | payer OTHER ==
[2019-05-31 19:41] VITALS: BP 122/101
--- NOTE | 2019-05-31 20:05 | ED Physician Documentation ---
History of Present Illness - Stated complaint Stated Complaint: CHILLS,WALSH - Chief complaint Chief Complaint: General - History obtained from History obtained from: Patient (the patient is a very pleasant 33-year-old male who presents with a chief complaint of a 1 day history of sore throat, cough, congestion and overall not feeling well he is not tried any treatment prior to arrival he did not receive a flu shot this year otherwise she reports she is up-to-date on all of his immunizations. He denies any severe headaches neck pains or rashes.He otherwise reports that he is healthy and does not take any daily medications other than the occasional medication for GERD.) Review of Systems Constitutional: reports: Fever, Chills, Myalgias Eyes: reports: Reviewed and negative Ears: reports: Reviewed and negative Nose: reports: Reviewed and negative Throat: reports: Sore throat Cardiac: reports: Reviewed and negative Respiratory: reports: Reviewed and negative GI: reports: Reviewed and negative : reports: Reviewed and negative Skin: reports: Reviewed and negative Musculoskeletal: reports: Reviewed and negative Neurologic: reports: Reviewed and negative Psychiatric: reports: Reviewed and negative Endocrine: reports: Reviewed and negative Immunocompromised: reports: Reviewed and negative PD PAST MEDICAL HISTORY - Past Medical History Cardiovascular: None Respiratory: None Neuro: None Endocrine/Autoimmune: None GI: GERD : None HEENT: None Psych: None Musculoskeletal: None Derm: None - Past Surgical History Past Surgical History: No - Present Medications Home Medications: Ambulatory Orders Medication Instructions Recorded Confirmed raNITIdine [Zantac] 150 mg PO BID #60 tablet 04/21/17 06/08/18 Esomeprazole Magnesium [Nexium] 40 mg PO DAILY #30 capsule. 06/08/18 Hydrocodone/Acetaminophen 1 - 2 each PO Q6H PRN #10 tablet 06/13/18 [Hydrocodon-Acetaminophen 5-325] Ondansetron Odt [Zofran] 4 mg TL Q6H PRN #10 tablet 06/13/18 Sucralfate [Carafate] 1 gm PO ACHS #60 tablet 06/13/18 Lidocaine Patch 5% [Lidoderm Patch] 1 patch TOP DAILY PRN #10 patch 09/21/18 Ondansetron Odt [Zofran] 4 mg TL Q6H PRN #10 tablet 10/28/18 - Allergies Allergies/Adverse Reactions: Allergies Allergy/AdvReac Type Severity Reaction Status Date / Time No Known Drug Allergies Allergy Verified 05/31/19 19:38 - Social History Does the pt smoke?: No Smoking Status: Never smoker Does the pt drink ETOH?: No Does the pt have substance abuse?: No - Immunizations Immunizations are current?: Yes - POLST Patient has POLST: No PD ED PE NORMAL - Vitals Vital signs reviewed: Yes - General General: Alert and oriented X 3, No acute distress, Well developed/nourished - HEENT HEENT: Atraumatic, PERRL, EOMI, Ears normal, Moist mucous membranes, Pharynx benign, Dentition benign - Neck Neck: Supple, no meningeal sign, No adenopathy, No JVD - Cardiac Cardiac: RRR, No murmur, Strong equal pulses - Respiratory Respiratory: No respiratory distress, Clear bilaterally - Abdomen Abdomen: Normal bowel sounds, Soft, Non tender, Non distended, No organomegaly - Back Back: No CVA TTP, No spinal TTP - Derm Derm: Normal color, Warm and dry, No rash - Extremities Extremities: No deformity, No tenderness to palpate, Normal ROM s pain - Neuro Neuro: Alert and oriented X 3, 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 will encourage hydration and ibuprofen and close follow up.) Departure - Departure Disposition: 01 Home, Self Care Clinical Impression: URI (upper respiratory infection) Qualifiers: URI type: unspecified URI Qualified Code(s): J06.9 - Acute upper respiratory infection, unspecified Condition: Good Instructions: ED Viral Syndrome Follow-Up: YOUR,DOCTOR [Other] - Tomorrow
[2019-05-31] MEDS ORDERED: IBUPROFEN 800 MG TABLET PO STA (20:10)
[2019-05-31 20:31] LABS: RAPID STREP SCREEN Negative (Negative)
== END 2019-05-31 20:47 | disposition home or self-care (01) ==
LOC: ED 19:22
DX: J06.9 Acute upper respiratory infection, unspecified (principal)
CPT/HCPCS: 87070; 87275; 87276; 87430; 99283; A9270

== ENCOUNTER 2019-06-06 18:22 | Emergency (ER) | payer OTHER ==
--- NOTE | 2019-06-06 20:30 | ED Physician Documentation ---
PD HPI URI - Stated complaint Stated Complaint: COUGH, WALSH, CHILLS - Chief complaint Chief Complaint: Fever - History obtained from History obtained from: Patient - History of Present Illness Timing - onset: How many days ago (10) Timing duration: Days (10) Timing details: Abrupt onset, Still present Associated symptoms: Fever, Chills, Nasal congestion, Dry cough (only occasionally productive of green phlegm) Contributing factors: No: Sick contact, Travel, COPD / asthma Similar symptoms before: Has not had sx before Recently seen: Emergency Dept (seen several days ago and Dx with URI, no Rx given. He states not improving and having persistent cough, poor sleep and general aches. Some episodes of vomiting. no diarrhea. Mild headache, worse at times with coughing.) Review of Systems Constitutional: reports: Fever, Chills, Myalgias, Fatigue Nose: reports: Congestion, Sinus pressure / pain Throat: denies: Sore throat Cardiac: denies: Chest pain / pressure, Palpitations Respiratory: reports: Dyspnea, Cough GI: reports: Nausea, Vomiting (couple of times). denies: Abdominal Pain, Diarrhea Skin: denies: Rash Musculoskeletal: denies: Neck pain, Back pain Neurologic: reports: Generalized weakness, Headache. denies: Altered mental status PD PAST MEDICAL HISTORY - Past Medical History Past Medical History: Yes Cardiovascular: None Respiratory: None Neuro: None Endocrine/Autoimmune: None GI: GERD : None HEENT: None Psych: None Musculoskeletal: None Derm: None - Past Surgical History Past Surgical History: No - Present Medications Home Medications: Ambulatory Orders Medication Instructions Recorded Confirmed raNITIdine [Zantac] 150 mg PO BID #60 tablet 04/21/17 06/08/18 Esomeprazole Magnesium [Nexium] 40 mg PO DAILY #30 capsule. 06/08/18 Hydrocodone/Acetaminophen 1 - 2 each PO Q6H PRN #10 tablet 06/13/18 [Hydrocodon-Acetaminophen 5-325] Ondansetron Odt [Zofran] 4 mg TL Q6H PRN #10 tablet 06/13/18 Sucralfate [Carafate] 1 gm PO ACHS #60 tablet 06/13/18 Lidocaine Patch 5% [Lidoderm Patch] 1 patch TOP DAILY PRN #10 patch 09/21/18 Ondansetron Odt [Zofran] 4 mg TL Q6H PRN #10 tablet 10/28/18 Albuterol Sulfate [Albuterol 2 puffs IH QID #1 hfa.aer.ad 06/06/19 Sulfate Hfa] Benzonatate [Tessalon Perle] 100 - 200 mg PO TID PRN #30 capsule 06/06/19 Hydrocodone/Acetaminophen [[place] 1 each PO Q6H PRN #15 tablet 06/06/19 5-325 Tablet] Ondansetron Odt [Zofran] 4 mg TL Q6H PRN #10 tablet 06/06/19 dexAMETHasone [Decadron] 4 mg PO DAILY #5 tablet 06/06/19 - Allergies Allergies/Adverse Reactions: Allergies Allergy/AdvReac Type Severity Reaction Status Date / Time No Known Drug Allergies Allergy Verified 05/31/19 19:38 - Social History Does the pt smoke?: No Smoking Status: Never smoker Does the pt drink ETOH?: No Does the pt have substance abuse?: No - Immunizations Immunizations are current?: Yes - POLST Patient has POLST: No PD ED PE NORMAL - Vitals Vital signs reviewed: Yes - General General: Alert and oriented X 3, No acute distress (looks like he is unhappy with illness but interacts well and does not appear in distress. ), Well developed/nourished - HEENT HEENT: Ears normal, Moist mucous membranes, Pharynx benign - Neck Neck: Supple, no meningeal sign, No adenopathy - Cardiac Cardiac: RRR, No murmur - Respiratory Respiratory: Clear bilaterally (without congestion but does have some mild tightness (no overt wheeze per se).) - Abdomen Abdomen: Soft, Non tender - Derm Derm: Normal color, Warm and dry - Neuro Neuro: Alert and oriented X 3, No motor deficit, Normal speech Eye Opening: Spontaneous Motor: Obeys Commands Verbal: Oriented GCS Score: 15 Results - Vitals Vitals: Vital Signs - 24 hr 06/06/19 06/06/19 18:37 21:45 Temperature 37.1 C 36.7 C Heart Rate 83 73 Respiratory 17 18 Rate Blood Pressure 134/77 H 121/54 L O2 Saturation 98 95 Oxygen O2 Source Room air - Labs Labs: Laboratory Tests 06/06/19 18:46 Influenza A (Rapid) Negative Influenza B (Rapid) Negative PD MEDICAL DECISION MAKING - ED course Complexity details: reviewed old records, considered differential (still seems viral illness and lungs clear, good sats. Does not sound like pneumonia. Can Rx with inhaler,steroids, cough med. ), d/w patient Departure - Departure Disposition: 01 Home, Self Care Clinical Impression: Upper respiratory infection Qualifiers: URI type: unspecified URI Qualified Code(s): J06.9 - Acute upper respiratory infection, unspecified Condition: Stable Record reviewed to determine appropriate education?: Yes Instructions: ED Upper Resp Infec No Abx Tx Follow-Up: [facility] [Provider Group] Prescriptions: Albuterol Sulfate [Albuterol Sulfate Hfa] 2 puffs IH QID #1 hfa.aer.ad Benzonatate [Tessalon Perle] 100 - 200 mg PO TID PRN #30 capsule PRN Reason: Cough dexAMETHasone [Decadron] 4 mg PO DAILY #5 tablet Hydrocodone/Acetaminophen [[place]burn 5-325 Tablet] 1 each PO Q6H PRN #15 tablet PRN Reason: Pain Ondansetron Odt [Zofran] 4 mg TL Q6H PRN #10 tablet PRN Reason: Nausea / Vomiting Comments: Stay well-hydrated. Ondansetron if needed for nausea. Use albuterol inhaler 2 puffs 4 times a day to help open the airways and breathe easier. Decadron steroid daily for 5 more days to decrease juice bronchial irritation and inflammation. Add Tessalon if needed for cough suppression. Tylenol or ibuprofen if needed for fevers chills and mild pains. Add hydrocodone if needed for worse pain and headache. Recheck if not improving well over the next 2 or 3 days. Off work as needed for tomorrow and the next day. Forms: Activity restrictions Discharge Date/Time: 06/06/19 21:54
[2019-06-06] MEDS ORDERED: DEXAMETHASONE 10 MG/ML VIAL PO STA (21:03)
[2019-06-06] MEDS ORDERED: BENZONATATE 100 MG CAPSULE PO STA (21:03)
[2019-06-06] MEDS ORDERED: IBUPROFEN 600 MG TABLET PO STA (21:03)
[2019-06-06] MEDS ORDERED: CHERRY SYRUP 10 ML UDC PO ONE (21:03)
[2019-06-06] MEDS ORDERED: HYDROcod/ACETAM 5/325 MG TABLET PO STA (21:03)
[2019-06-06] MEDS ORDERED: ONDANSETRON ODT 4 MG TABLET TL STA (21:04)
[2019-06-06 21:46] VITALS: BP 121/54
== END 2019-06-06 21:54 | disposition home or self-care (01) ==
LOC: ED 18:22
DX: J06.9 Acute upper respiratory infection, unspecified (principal)
CPT/HCPCS: 87275; 87276; 99283; 99284; A9270; Q0162

== ENCOUNTER 2019-08-17 08:21 | Emergency (ER) | payer OTHER ==
--- NOTE | 2019-08-17 08:42 | ED Physician Documentation ---
History of Present Illness - Stated complaint Stated Complaint: COUGH/DIARRHEA - Chief complaint Chief Complaint: Heent - History obtained from History obtained from: Patient - History of Present Illness Timing: Other (33-year-old gentleman has been sick for 2 weeks. He has had a cough, it was initially productive now dry. He has a lot of boogers. He had fevers the first week, now better. Daughter also sick with a similar illness. 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 He has been a little short of breath.) Review of Systems Constitutional: reports: Fever (gone), Fatigue Nose: reports: Rhinorrhea / runny nose Throat: denies: Sore throat Cardiac: denies: Chest pain / pressure, Palpitations PD PAST MEDICAL HISTORY - Past Medical History Past Medical History: Yes Cardiovascular: None Respiratory: None Neuro: None Endocrine/Autoimmune: None GI: GERD : None HEENT: None Psych: None Musculoskeletal: None Derm: None - Past Surgical History Past Surgical History: No - Present Medications Home Medications: Ambulatory Orders Medication Instructions Recorded Confirmed Albuterol Sulfate [Proair Hfa 1 - 2 puffs INH Q4H PRN #1 inhaler 08/17/19 Inhaler] guaiFENesin/CODEINE [Robitussin AC] 5 - 10 ml PO Q6H PRN #120 ml 08/17/19 - Allergies Allergies/Adverse Reactions: Allergies Allergy/AdvReac Type Severity Reaction Status Date / Time No Known Drug Allergies Allergy Verified 08/17/19 08:32 - Social History Does the pt smoke?: No Smoking Status: Never smoker Does the pt drink ETOH?: No Does the pt have substance abuse?: No - Immunizations Immunizations are current?: Yes - POLST Patient has POLST: No PD ED PE NORMAL - Vitals Vital signs reviewed: Yes - General General: Alert and oriented X 3, No acute distress - Neck Neck: Supple, no meningeal sign, No bony TTP - Cardiac Cardiac: RRR, No murmur - Respiratory Respiratory: No respiratory distress, Other (Slightly diminished at the bases without focal findings, nonlabored, speaking in full sentences) - Extremities Extremities: No edema, No calf tenderness / cord - Neuro Neuro: Alert and oriented X 3, Normal speech Results - Vitals Vitals: Vital Signs - 24 hr 08/17/19 08:30 Temperature 36.7 C Heart Rate 98 Respiratory 20 Rate Blood Pressure 149/80 H O2 Saturation 99 Oxygen O2 Source Room air - Rads (name of study) 1v chest Radiology: EMP read contemporaneously (peribronchial thickening) PD MEDICAL DECISION MAKING - ED course ED course: 33-year-old gentleman with persistent viral type URI and bronchitis. No evidence of bacterial illness. His main concern is when he can return to work and we discussed the CDC return to work guidelines for same. Departure - Departure Disposition: 01 Home, Self Care Clinical Impression: Bronchitis Condition: Good Record reviewed to determine appropriate education?: Yes Instructions: ED Upper Resp Infec No Abx Tx Prescriptions: Albuterol Sulfate [Proair Hfa Inhaler] 1 - 2 puffs INH Q4H PRN #1 inhaler PRN Reason: Shortness Of Air/Wheezing guaiFENesin/CODEINE [Robitussin AC] 5 - 10 ml PO Q6H PRN #120 ml PRN Reason: Cough Comments: Your chest x-ray today shows changes consistent with bronchitis. The inhaler should help with the shortness of breath and cough, I am also prescribing some cough syrup for nighttime use. Do not drink or drive with it. Return if you worsen and follow-up with your primary care physician in 1 week if you are not better. As discussed, regardless of the coronavirus test results which we will call you with, you should not work until you are symptom-free and another 3 days has passed. Forms: Activity restrictions
--- NOTE | 2019-08-17 09:14 | XRAY Report ---
Reason: cough Procedure Date: 08/17/2019 Accession Number: [id number] / [id number] Procedure: XR - Chest 1 View X-Ray CPT Code: 92729 Final Report FULL RESULT: EXAM: CHEST RADIOGRAPHY EXAM DATE: 08/17/2019 08:55 AM. CLINICAL HISTORY: Cough. COMPARISON: [facility]BS W/PA CHEST LT 09/21/2018 11:00 AM. TECHNIQUE: 1 view. FINDINGS: Lungs/Pleura: Peribronchial thickening No focal opacities evident. No pleural effusion. No pneumothorax. Mediastinum: Within exam limitations, the cardiomediastinal contour is normal. Other: None. IMPRESSION: Peribronchial thickening may represent bronchitis RADIA
[2019-08-17 09:45] VITALS: BP 126/77
== END 2019-08-17 09:32 | disposition home or self-care (01) ==
LOC: ED 08:21
DX: J40 Bronchitis, not specified as acute or chronic (principal)
CPT/HCPCS: 71045; 81599; 99284

== ENCOUNTER 2020-07-13 05:28 | Emergency (ER) | payer OTHER ==
[2020-07-13 05:54] LABS: BASOPHILS # (AUTO) 0.1 10^3/uL (0.0-0.1); BASOPHILS % (AUTO) 0.3 %; EOSINOPHILS # (AUTO) 0.2 10^3/uL (0.0-0.7); EOSINOPHILS % (AUTO) 0.9 %; HCT - HEMATOCRIT 50.5 % (42.0-52.0); HGB - HEMOGLOBIN 16.5 g/dL (14.0-18.0); LYMPHOCYTES # (AUTO) 2.4 10^3/uL (1.5-3.5); MEAN CORPUSCULAR HEMOGLOBIN 30.1 pg (27.0-31.0); MEAN CORPUSCULAR HGB CONC 32.7 g/dL (32.0-36.0); MEAN CORPUSCULAR VOLUME 92.2 fL (80.0-94.0); MONOCYTES # (AUTO) 0.9 10^3/uL (0.0-1.0); MONOCYTES % (AUTO) 4.9 %; NEUTROPHILS # (AUTO) 14.5 10^3/uL (1.5-6.6); NEUTROPHILS % (AUTO) 80.5 %; PLT - PLATELET COUNT 357 10^3/uL (130-450); RED BLOOD COUNT 5.48 10^6/uL (4.70-6.10)
--- NOTE | 2020-07-13 06:00 | ED Physician Documentation ---
PD HPI NVD - Stated complaint Stated Complaint: DIARRHEA, NAUSEA, VOMIT - Chief complaint Chief Complaint: Abd Pain - History obtained from History obtained from: Patient - History of Present Illness Timing - onset: Enter time (299), Today Timing - duration: Hours Timing - details: Abrupt onset, Still present Associated symptoms: Abdominal pain, Other (diarrhea and vomiting) Contributing factors: Bad food (ate chicken and rice similar to the rest of the family who are well.) Improved by: Vomiting, BM Similar symptoms before: Has not had sx before Recently seen: Not recently seen - Additonal information Additional information: Previously well 34-year-old male had chicken and rice with his at 6 PM and 3 AM he began to vomit and have diarrhea. He states that he had abdominal pain cramping felt like he had to have a bowel movement went into the bathroom was unable to go finally firm stool came out followed by copious amounts of diarrhea. He had repeated diarrhea and he has had vomiting. None of the other people in his family are ill. He does not recall anything else that he ate that the rest the family did not. Review of Systems Constitutional: reports: Chills, Sweats. denies: Fever Eyes: denies: Decreased vision Ears: denies: Ear pain Nose: denies: Congestion Throat: denies: Sore throat Cardiac: denies: Chest pain / pressure, Palpitations Respiratory: denies: Dyspnea, Cough GI: reports: Abdominal Pain, Nausea, Vomiting, Diarrhea : denies: Dysuria, Frequency PD PAST MEDICAL HISTORY - Past Medical History Cardiovascular: None Respiratory: None Neuro: None Endocrine/Autoimmune: None GI: GERD : None HEENT: None Psych: None Musculoskeletal: None Derm: None - Past Surgical History Past Surgical History: No - Present Medications Home Medications: Ambulatory Orders Medication Instructions Recorded Confirmed Ondansetron Odt [Zofran] 4 mg TL Q6H PRN #10 tablet 07/13/20 - Allergies Allergies/Adverse Reactions: Allergies Allergy/AdvReac Type Severity Reaction Status Date / Time No Known Drug Allergies Allergy Verified 07/13/20 05:38 - Social History Does the pt smoke?: No Smoking Status: Never smoker Does the pt drink ETOH?: No Does the pt have substance abuse?: No - Immunizations Immunizations are current?: Yes - POLST Patient has POLST: No PD ED PE NORMAL - Vitals Vital signs reviewed: Yes (hypertensive ) - General General: Alert and oriented X 3, No acute distress, Well developed/nourished - HEENT HEENT: Atraumatic, PERRL, EOMI - Neck Neck: Supple, no meningeal sign, No bony TTP - Cardiac Cardiac: RRR, No murmur - Respiratory Respiratory: No respiratory distress, Clear bilaterally - Abdomen Abdomen: Normal bowel sounds, Soft, Non distended, No organomegaly, Other (mild general tenderness without garding ) - Back Back: No CVA TTP, No spinal TTP - Derm Derm: Normal color, Warm and dry, No rash - Extremities Extremities: No deformity, No edema - Neuro Neuro: Alert and oriented X 3, conservation scientist 2-12 intact, No motor deficit, No sensory deficit, Normal speech Eye Opening: Spontaneous Motor: Obeys Commands Verbal: Oriented GCS Score: 15 - Psych Psych: Normal mood, Normal affect Results - Vitals Vitals: Vital Signs - 24 hr 07/13/20 05:30 Temperature 36.3 C L Heart Rate 78 Respiratory 16 Rate Blood Pressure 131/84 H O2 Saturation 97 Oxygen O2 Source Room air - Labs Labs: Laboratory Tests 07/13/20 07/13/20 05:46 05:46 WBC 18.0 H RBC 5.48 Hgb 16.5 Hct 50.5 MCV 92.2 MCH 30.1 MCHC 32.7 RDW 13.0 Plt Count 357 MPV 9.0 Neut # (Auto) 14.5 H Lymph # (Auto) 2.4 Clarke # (Auto) 0.9 Eos # (Auto) 0.2 Baso # (Auto) 0.1 Absolute Nucleated RBC 0.00 Nucleated RBC % 0.0 Sodium 139 Potassium 3.8 Chloride 105 Carbon Dioxide 25 Anion Gap 9.0 BUN 15 Creatinine 1.2 Estimated GFR (MDRD) 69 L Glucose 146 H Calcium 9.9 Total Bilirubin 0.6 AST 23 ALT 34 Alkaline Phosphatase 81 Total Protein 9.1 H Albumin 4.8 Globulin 4.3 H Albumin/Globulin Ratio 1.1 Lipase 100 H PD MEDICAL DECISION MAKING - ED course Complexity details: reviewed old records, reviewed results, re-evaluated patient, considered differential, d/w patient ED course: Patient with symptoms consistent with acute food poisoning has had the symptoms previously usually resolve rapidly. Today he is hydrated with a liter of saline and given 4 mg of Zofran and feels improved. We will send him home with a prescription for some Zofran. Departure - Departure Disposition: Home, Self Care Clinical Impression: Gastroenteritis Condition: Stable Instructions: ED Gastroenteritis Vs Food Poison Follow-Up: JEM Arriaga [Provider Group] Prescriptions: Ondansetron Odt [Zofran] 4 mg TL Q6H PRN #10 tablet PRN Reason: Nausea / Vomiting
[2020-07-13 06:07] LABS: ALBUMIN 4.8 g/dL (3.2-5.5); ALBUMIN/GLOBULIN RATIO 1.1 (1.0-2.2); BILIRUBIN,TOTAL 0.6 mg/dL (0.2-1.0); CALCIUM 9.9 mg/dL (8.5-10.3); CREATININE 1.2 mg/dL (0.6-1.2); POTASSIUM 3.8 mmol/L (3.5-5.0); TOTAL PROTEIN 9.1 g/dL (6.7-8.2)
[2020-07-13] MEDS ORDERED: ONDANSETRON 4 MG/2 ML VIAL IVP STA (06:08)
[2020-07-13] MEDS ORDERED: SODIUM CHLORIDE 0.9% 1,000 ML IV STA (06:08)
[2020-07-13 07:27] VITALS: BP 127/76
== END 2020-07-13 07:28 | disposition home or self-care (01) ==
LOC: ED 05:28
DX: K52.9 Noninfective gastroenteritis and colitis, unspecified (principal)
CPT/HCPCS: 36415; 80053; 83690; 85025; 96361; 96374; 99283

== ENCOUNTER 2021-06-18 07:37 | Emergency (ER) | payer OTHER ==
[2021-06-18 07:49] VITALS: BP 138/87
--- NOTE | 2021-06-18 08:39 | ED Physician Documentation ---
History of Present Illness - Stated complaint Stated Complaint: SORE THROAT - Chief complaint Chief Complaint: General - History obtained from History obtained from: Patient - Additonal information Additional information: The patient comes to the emergency department chief complaint of upper respiratory symptoms and I would like a Covid test. Patient states that he has had a runny nose, cough, and mild sore throat for the past 3 days. He states his young daughter also has the same symptoms and that she had a fever last night and that his became worried that they may have Covid. Nobody else has been sick at home and patient denies any other sick contacts. He is vaccinated. He states he has had a mild decrease in his ability to taste but denies any change in his sense of smell. No fevers that he is measured though he thought he might have felt hot a couple of days ago. He has not been taking any medication. No other complaints at this time. Review of Systems Ten Systems: 10 systems reviewed and negative Constitutional: reports: Reviewed and negative Eyes: reports: Reviewed and negative Ears: reports: Reviewed and negative Nose: reports: Rhinorrhea / runny nose, Congestion Throat: reports: Sore throat Cardiac: reports: Reviewed and negative Respiratory: reports: Cough. denies: Dyspnea GI: reports: Reviewed and negative : reports: Reviewed and negative Skin: reports: Reviewed and negative Musculoskeletal: reports: Reviewed and negative Neurologic: reports: Reviewed and negative Psychiatric: reports: Reviewed and negative Endocrine: reports: Reviewed and negative Immunocompromised: reports: Reviewed and negative PD PAST MEDICAL HISTORY - Past Medical History Past Medical History: No Cardiovascular: None Respiratory: None Neuro: None Endocrine/Autoimmune: None GI: GERD : None HEENT: None Psych: None Musculoskeletal: None Derm: None - Past Surgical History Past Surgical History: No - Present Medications Home Medications: Ambulatory Orders Medication Instructions Recorded Confirmed No Known Home Medications 06/18/21 06/18/21 - Allergies Allergies/Adverse Reactions: Allergies Allergy/AdvReac Type Severity Reaction Status Date / Time No Known Drug Allergies Allergy Verified 06/18/21 07:45 - Social History Does the pt smoke?: No Smoking Status: Never smoker Does the pt drink ETOH?: No Does the pt have substance abuse?: No - Immunizations Immunizations are current?: Yes - POLST Patient has POLST: No PD ED PE NORMAL - Vitals Vital signs reviewed: Yes - General General: Alert and oriented X 3, No acute distress, Well developed/nourished - HEENT HEENT: Atraumatic, PERRL, EOMI, Moist mucous membranes, Pharynx benign - Neck Neck: Supple, no meningeal sign - Cardiac Cardiac: RRR, No murmur, Strong equal pulses - Respiratory Respiratory: No respiratory distress, Clear bilaterally - Derm Derm: Normal color, Warm and dry, No rash - Extremities Extremities: No deformity - Neuro Neuro: Alert and oriented X 3 - Psych Psych: Normal mood, Normal affect Results - Vitals Vitals: Vital Signs - 24 hr 06/18/21 07:46 Temperature 36.8 C Heart Rate 81 Respiratory 18 Rate Blood Pressure 138/87 H O2 Saturation 98 Oxygen O2 Source Room air PD MEDICAL DECISION MAKING - ED course Complexity details: considered differential, d/w patient ED course: Patient was tested for Covid and this is pending at this time. We have discussed symptomatic management at home, as well as the usual indications for return. Departure - Departure Disposition: 01 Home, Self Care Clinical Impression: Viral upper respiratory infection Condition: Stable Instructions: ED Viral Syndrome Comments: A Covid test has been sent and is pending at this time. We will call you if it is positive but the best way to follow-up with negative test is to go to our hospital website at [email or web address], click on the "my [facility]" tab, and sign up for the patient portal. Your results should be back in the next 24 to 48 hours. Please quarantine until you have received to confirm negative test.
== END 2021-06-18 09:01 | disposition home or self-care (01) ==
LOC: ED 07:37
DX: J06.9 Acute upper respiratory infection, unspecified (principal); Z20.822 Contact with and (suspected) exposure to COVID-19
CPT/HCPCS: 99282; 99283

== ENCOUNTER 2021-09-19 06:00 | Outpatient (CLI) | payer OTHER ==
--- NOTE | 2021-09-19 17:04 | XRAY Report ---
PROCEDURE: Hip BILAT INDICATIONS: BILAT HIP PAIN TECHNIQUE: 2 views of the right hip and left hip were acquired. COMPARISON: 01/12/2020. FINDINGS: Bones: No fractures or dislocations. No suspicious bony lesions. The visualized pelvic ring appear s intact. Moderate osteophytic degenerative changes noted in the hips bilaterally with osseous hypert rophy and joint space narrowing. Soft tissues: No suspicious soft tissue calcifications or masses. IMPRESSION: Moderate bilateral hip osteoarthritis. Reviewed by: Halie Coy MD, PhD on 09/19/2021 5:03 PM PDT Approved by: Halie Coy MD, PhD on 09/19/2021 5:03 PM PDT Station ID: [id number]
== END 2021-09-19 23:59 | disposition home or self-care (01) ==
LOC: DI.WOS 06:00
PROVIDERS: ATTEND Physician Assistant Surgical
DX: M16.0 Bilateral primary osteoarthritis of hip (principal)

== ENCOUNTER 2021-10-23 08:14 | Emergency (ER) | payer OTHER ==
[2021-10-23 08:29] VITALS: BP 129/73
--- NOTE | 2021-10-23 08:51 | ED Physician Documentation ---
PD HPI URI - Stated complaint Stated Complaint: COUGH - Chief complaint Chief Complaint: Heent - History obtained from History obtained from: Patient - History of Present Illness Timing - onset: How many days ago (2) Timing duration: Days (2) Timing details: Abrupt onset, Still present Associated symptoms: Fever, Chills, Nasal congestion, Dry cough, NVD Contributing factors: Other (home rapid COVID test negative.). No: Sick contact, Travel, Unimmunized, COPD / asthma Improves by: No: Medication Worsened by: Activity, Breathing Similar symptoms before: Has not had sx before Recently seen: Not recently seen Review of Systems Constitutional: reports: Fever, Chills, Myalgias, Fatigue Nose: reports: Congestion Throat: denies: Sore throat Cardiac: denies: Chest pain / pressure Respiratory: reports: Dyspnea, Cough. denies: Wheezing GI: reports: Nausea, Vomiting (several times, particularly with coughing hard.), Diarrhea (one episode yesterday). denies: Abdominal Pain Skin: denies: Rash, Lesions Musculoskeletal: denies: Neck pain Neurologic: reports: Generalized weakness, Headache. denies: Near syncope, Altered mental status PD PAST MEDICAL HISTORY - Past Medical History Cardiovascular: None Respiratory: None Neuro: None Endocrine/Autoimmune: None GI: GERD : None HEENT: None Psych: None Musculoskeletal: None Derm: None - Past Surgical History Past Surgical History: No - Present Medications Home Medications: Ambulatory Orders Medication Instructions Recorded Confirmed Albuterol Sulf [Ventolin Hfa 2 - 3 puffs INH Q4HR PRN #1 inhaler 10/23/21 Inhaler] Benzonatate [Tessalon] 100 mg PO TID PRN #20 cap 10/23/21 Famotidine [Pepcid] 20 mg PO DAILY #20 tablet 10/23/21 Ondansetron Odt [Zofran] 4 mg TL Q6H PRN #20 tablet 10/23/21 - Allergies Allergies/Adverse Reactions: Allergies Allergy/AdvReac Type Severity Reaction Status Date / Time No Known Drug Allergies Allergy Verified 10/23/21 08:29 - Social History Does the pt smoke?: No Smoking Status: Never smoker Does the pt drink ETOH?: No Does the pt have substance abuse?: No - Immunizations Immunizations are current?: Yes - POLST Patient has POLST: No PD ED PE NORMAL - Vitals Vital signs reviewed: Yes - General General: Alert and oriented X 3, No acute distress, Well developed/nourished - HEENT HEENT: Ears normal, Moist mucous membranes, Pharynx benign - Neck Neck: Supple, no meningeal sign, No adenopathy - Cardiac Cardiac: RRR, No murmur - Respiratory Respiratory: Clear bilaterally (mild exp wheezing with cough. No barking. Does have repetitive coughing spasms. ) - Abdomen Abdomen: Soft, Non tender - Derm Derm: Normal color, Warm and dry - Extremities Extremities: Normal ROM s pain, No edema, No calf tenderness / cord - Neuro Neuro: Alert and oriented X 3, No motor deficit, Normal speech Results - Vitals Vitals: Vital Signs - 24 hr 10/23/21 10/23/21 08:26 09:31 Temperature 36.6 C Heart Rate 92 91 Respiratory 20 23 Rate Blood Pressure 129/73 O2 Saturation 98 Oxygen O2 Source Room air - Labs Labs: Laboratory Tests 10/23/21 09:18 Nasal Influenza B PCR NOT DETECTED Nasal Influenza A PCR NOT DETECTED Nasal RSV (PCR) NOT DETECTED Nasal SARS-CoV-2 (PCR) NOT DETECTED PD MEDICAL DECISION MAKING - ED course Complexity details: considered differential (sounds flu like actually. Can get COVID/Flu test. Otherwise treat symptoms. Does not sound bacterial. Sats good. ), d/w patient Departure - Departure Disposition: 01 Home, Self Care Clinical Impression: Flu-like symptoms Upper respiratory infection Qualifiers: URI type: unspecified URI Qualified Code(s): J06.9 - Acute upper respiratory infection, unspecified Nausea and vomiting Qualifiers: Vomiting type: unspecified Qualified Code(s): R11.2 - Nausea with vomiting, unspecified Condition: Stable Record reviewed to determine appropriate education?: Yes Instructions: ED Upper Resp Infec No Abx Tx Prescriptions: Albuterol Sulf [Ventolin Hfa Inhaler] 2 - 3 puffs INH Q4HR PRN #1 inhaler PRN Reason: Shortness Of Air/Wheezing Famotidine [Pepcid] 20 mg PO DAILY #20 tablet Benzonatate [Tessalon] 100 mg PO TID PRN #20 cap PRN Reason: Cough Ondansetron Odt [Zofran] 4 mg TL Q6H PRN #20 tablet PRN Reason: Nausea / Vomiting Comments: Small frequent fluids and bland food to maintain hydration. Ondansetron every 4-6 hours if needed for nausea. You could also add famotidine acid reducing medicine twice daily for the next 4 to 5 days and then once daily for another week or 2 to help with reflux/heartburn. Use the albuterol inhaler 2 to 3 puffs 4 times daily for the next several days to week. Extra times if needed. Also use the benzonatate/Tessalon if needed f or cough suppression. Tylenol every 4-6 hours if needed for pains or fevers. Off work for 2 to 3 days at least. We did do COVID/flu nasal test. That should result later today or tomorrow. We will call you if positive results. Otherwise this does sound like a viral/flulike type of illness. I would anticipate symptoms for 4 to 5 days. Return if worsening. I transmitted your prescriptions to [facility] pharmacy in [place]. Forms: Activity restrictions Discharge Date/Time: 10/23/21 09:55
[2021-10-23] MEDS ORDERED: KETOROLAC 30 MG/ML VIAL IM STA (09:03)
[2021-10-23] MEDS ORDERED: ONDANSETRON 4 MG/2 ML VIAL IM STA (09:03)
[2021-10-23] MEDS ORDERED: BENZONATATE 100 MG CAPSULE PO STA (09:03)
[2021-10-23] MEDS ORDERED: ALBUTEROL 1 PUFF INH STA (09:03)
[2021-10-23 10:24] LABS: INFLUENZA A- RESP PCR PANEL NOT DETECTED; INFLUENZA B - RESP PCR PANEL NOT DETECTED; RSV- RESP PCR PANEL NOT DETECTED; SARS-CoV-2 -RESP PCR PANEL NOT DETECTED
== END 2021-10-23 09:55 | disposition home or self-care (01) ==
LOC: ED 08:14
DX: J06.9 Acute upper respiratory infection, unspecified (principal); R11.2 Nausea with vomiting, unspecified; Z20.822 Contact with and (suspected) exposure to COVID-19
CPT/HCPCS: 87637; 94640; 94664; 96372; 99284; A9270

== ENCOUNTER 2022-04-23 08:42 | Outpatient (CLI) | payer OTHER ==
[2022-04-23] MEDS ORDERED: LIDOCAINE-MPF 1% 5 ML VIAL ONE (08:46)
[2022-04-23] MEDS ORDERED: iohexoL-240 10 ML VIAL IVP ONE ×2 (08:47→10:06)
[2022-04-23] MEDS ORDERED: BUPIVACAINE 0.5% PF 10 ML VIAL ONE (08:47)
[2022-04-23] MEDS ORDERED: TRIAMCINOLONE 40 MG/ML VIAL ONE (08:47)
[2022-04-23] MEDS ORDERED: BUPIVACAINE 0.5% PF 10 ML VIAL IM ONE (10:05)
[2022-04-23] MEDS ORDERED: TRIAMCINOLONE 40 MG/ML VIAL IM ONE (10:05)
[2022-04-23] MEDS ORDERED: LIDOCAINE-MPF 1% 5 ML VIAL TD ONE (10:07)
--- NOTE | 2022-04-23 17:00 | XRAY Report ---
PROCEDURE: Inj/Aspiration Major Joint INDICATIONS: DJD LEFT HIP FLUORO TIME: 0.6 TECHNIQUE: The indications, alternatives, benefits, risks, and complications of the procedure were explained to the patient. Written informed consent was obtained and placed in the chart. The patient was placed in an appropriate position on the fluoroscopy table, and a site was chosen for percutaneous access un josue fluoroscopic guidance. Local anesthetic was administered using a 1% lidocaine solution. A hypod ermic or spinal needle was then used to access the symptomatic joint. Intra-articular location of th e needle tip was confirmed by injecting a small amount of contrast, followed by steroid administratio n. The needle was then withdrawn, and a bandage applied to the puncture site. FINDINGS: Joint injected: Left hip Medications injected: 4 mL of 40 mg/mL Kenalog and 0.5% Ropivacaine mixture. Complications: None. Preprocedure pain score: 7/8 out of 10 Postprocedure pain score: 0 out of 10 IMPRESSION: Successful fluoroscopically guided administration of steroid and anaesthetic solution into the joint joint. Reviewed by: Malini Garcia MD on 04/23/2022 4:58 PM PST Approved by: Malini Garcia MD on 04/23/2022 4:58 PM PST Station ID: [id number]
== END 2022-04-23 08:43 | disposition home or self-care (01) ==
LOC: DI 08:42
PROVIDERS: ATTEND Physician Assistant Surgical
DX: M16.12 Unilateral primary osteoarthritis, left hip (principal)
CPT/HCPCS: 20610; 77002; Q9966

== ENCOUNTER 2023-06-03 07:47 | Emergency (ER) | payer OTHER ==
--- NOTE | 2023-06-03 08:06 | ED Physician Documentation ---
PD HPI BACK PAIN - Stated complaint Stated Complaint: BACK PX,SOA - Chief complaint Chief Complaint: Back Pain - History obtained from History obtained from: Patient - History of Present Illness Timing - onset: How many hours ago (1), Today Timing - duration: Hours (1) Timing - details: Abrupt onset, Still present Location: Upper, Mid Quality: Pain, Spasm Associated symptoms: No: Fever, Weakness, Numbness Improves with: No: Rest Worsened by: Movement, Other (breathing) Contributing factors: Lifting (he was lifting his young daughter (about 3 years old) which he does regularly and noted onset of severe mid to lower thoracic pain wrapping around left side to the lower ribs/abd muscles. Associated pain worse with movement and breathing. No abd pain.), Twisting Similar symptoms before: Has not had sx before Recently seen: Not recently seen Review of Systems Constitutional: denies: Fever, Chills Nose: denies: Rhinorrhea / runny nose, Congestion Throat: denies: Sore throat Respiratory: denies: Cough GI: reports: Nausea. denies: Abdominal Pain, Vomiting, Diarrhea PD PAST MEDICAL HISTORY - Past Medical History Past Medical History: Yes Cardiovascular: None Respiratory: None Neuro: None Endocrine/Autoimmune: None GI: GERD : None HEENT: None Psych: None Musculoskeletal: None Derm: None - Past Surgical History Past Surgical History: No - Present Medications Home Medications: Ambulatory Orders Medication Instructions Recorded Confirmed HYDROcod/ACETAM 5/325 [[place] 5/325] 1 ea PO Q6H PRN #18 tablet 06/03/23 Ibuprofen [Motrin] 600 mg PO TID PRN #25 tab 06/03/23 methocarbamoL [Robaxin] 500 mg PO Q6H PRN #25 tablet 06/03/23 - Allergies Allergies/Adverse Reactions: Allergies Allergy/AdvReac Type Severity Reaction Status Date / Time No Known Drug Allergies Allergy Verified 06/03/23 07:53 - Social History Does the pt smoke?: No Smoking Status: Never smoker Does the pt drink ETOH?: No Does the pt have substance abuse?: No - Immunizations Immunizations are current?: Yes - POLST Patient has POLST: No PD ED PE NORMAL - Vitals Vital signs reviewed: Yes - General General: Alert and oriented X 3, Well developed/nourished, Other (appears very uncomfortable with walking hunched forward to minimize back muscle movement. ) - Neck Neck: Supple, no meningeal sign, No adenopathy - Cardiac Cardiac: RRR, No murmur - Respiratory Respiratory: No respiratory distress, Clear bilaterally - Abdomen Abdomen: Soft, Non tender - Derm Derm: Normal color, Warm and dry, No rash - Neuro Neuro: Alert and oriented X 3, No motor deficit, No sensory deficit, Normal speech Results - Vitals Vitals: Vital Signs - 24 hr 06/03/23 06/03/23 06/03/23 07:50 09:49 10:18 Temperature 36.3 C L Heart Rate 65 50 L 53 L Respiratory 24 16 16 Rate Blood Pressure 139/83 H 136/78 H 123/78 O2 Saturation 100 100 98 Oxygen O2 Source Room air - Rads (name of study) chest CT Relevant Findings:: Prelim report reviewed (multiple small nodules 0.2-0.8 cm from uncertain etiology. No acute finding to explain pain. ), EMP independent interpretation of test PD Medical Decision Making - ED course Complexity details: reviewed results (no acute process to esxplain the pain. in particular no compression deformities, bone lesions, disc abnormal, PTX, lung effusion. Multiple nodules noted scattered in lungs with suggestion of f/u imaging 6 months. Pt states he grew up in [facility] and lived in [facility] for many years. ), re-evaluated patient (improved pain reasonable well with IV Toradol and Dilaudid, with PO Robaxin. Pain improved reasonably well but down to 3. Given repeat dose of antiemetic and pain meds. ), considered differential, d/w patient Reviewed Lab Results: had abrupt back pain with spasms whil ejust lifting his daughter. The degree of pain seems unusual for just muscle strain. Got CT imaging as there was pleuritic and movement components so to eval for lung/spine processes. No findings to account for pain, so presume myofascial (muscle strain or such). Has multiple small nodules in lungs appear chronic per Radiology. He does not have history of lung infections and denies chronic cough. Consider prior fungallung infection such as histoplasmosis, coccidiomycosis, blastomycosis. Departure - Departure Disposition: 01 Home, Self Care Clinical Impression: Strain of thoracic back region, Lung nodules Condition: Stable Record reviewed to determine appropriate education?: Yes Instructions: ED Spasm Back No Trauma Follow-Up: [facility] [place] [Provider Group] Prescriptions: Ibuprofen [Motrin] 600 mg PO TID PRN #25 tab PRN Reason: Pain HYDROcod/ACETAM 5/325 [[place] 5/325] 1 ea PO Q6H PRN #18 tablet PRN Reason: Pain methocarbamoL [Robaxin] 500 mg PO Q6H PRN #25 tablet PRN Reason: Spasms Comments: Your CT scan did not show any obvious spinal abnormalities nor injury to the lung. The kidneys and upper abdomen organs appeared normal as well so no signs of kidney stones or acute liver or gallbladder problems. No collapsed lung or such. With that I would presume a muscle strain and spasms and treat this with heat and range of motion. Physical modalities such as massage or chiropractic are okay as well. I would use a combination of anti-inflammatory such as ibuprofen 3 times daily with food along with a muscle relaxant methocarbamol 3-4 times daily as well. Add Tylenol every 4-6 hours if needed for pain or hydrocodone/acetaminophen if needed for worse pain. I would anticipate improvement over couple of days. Progress activity as tolerated. In addition on your CT scan there was comment of multiple very small nodules (2 to 8 mm). This commonly can represent prior infectious process with left over scarring. Depending upon where you grew up, the more prevalent ones can be coccidiomycosis or histoplasmosis or blastomycosis. Rarely would this represent a dormant tuberculosis. The pattern of it would be more concerning for a prior dormant and past infection with scarring versus whether there is any signs of active chronic infection. It does not look like a tumor or cancer type picture per se. Suggestion would be a repeat scan imaging in about 6 months to see if there is any enlargement or expansion of this to suggest a more active process. Otherwise if it is the same then presume old dormant scarring. I sent new prescriptions to the [facility] pharmacy. I am prescribing a short course of narcotic pain medication for you. These are potentially dangerous and addictive medications that should be used carefully. These medications may constipate you. Take an hkox-jse-lfcegeb stool softener such as docusate twice daily with plenty of water while taking these medications. If you go 24 hours without a bowel movement, take [id number] MiraLAX, per package instructions. Do not drink or drive while taking these medications. If you received narcotic or sedating medications while in the emergency department do not drive for 24 hours. Store this medication in a safe, secure place and out of reach of children. It is a violation of federal law to give or sell this medication to another person or to use in a manner other than prescribed. The ED will not refill narcotic prescriptions, including prescriptions lost or stolen. You can dispose of unwanted medications at the [facility]'s office or at several pharmacies such as [facility]. Forms: Activity restrictions Discharge Date/Time: 06/03/23 10:35
[2023-06-03] MEDS: KETOROLAC 30 MG/ML VIAL IVP STA (08:18)
[2023-06-03] MEDS: methocarbamoL 500 MG TABLET PO STA (08:18)
[2023-06-03] MEDS: HYDROmorphone 1 MG/ML CARPUJECT IVP STA ×2 (08:19→10:20)
[2023-06-03] MEDS: KETOROLAC 30 MG/ML VIAL IM STA (08:19)
[2023-06-03] MEDS: LIDOCAINE PATCH 4% TOP STA (08:19)
[2023-06-03] MEDS: HYDROmorphone 1 MG/ML CARPUJECT IM STA (08:19)
--- NOTE | 2023-06-03 09:15 | CT Report ---
PROCEDURE: Chest WO INDICATIONS: abrupt lower thoracic pain lifting today TECHNIQUE: A CT scan of the chest was performed. Intravenous contrast media was not administered. Images were re corded and evaluated at appropriate window settings. Reformats: axial MIP of the chest, coronal and s agittal. For radiation dose reduction, the following was used: automated exposure control, adjustment of mA and/or kV according to patient size. COMPARISON: Single view the chest dated 08/17/2019 FINDINGS: Image quality: Diagnostic. Chest wall and lower neck: No thyroid nodule which requires sonographic follow up. No axillary or sup raclavicular adenopathy by size. Lungs and pleura: No consolidation. No pleural effusions. No pneumothorax. There are multiple pulmonary nodules which require follow-up: There is a 8 mm pulmonary nodule within the right middle lobe (series 4/image 62). A 4 mm intrafissural nodule is present within the right o blique fissure. A 6 mm pulmonary nodule is present within the left oblique fissure (series 4/image 56 ). A 5 mm pulmonary nodule is present within the left upper lobe (series 4/image 41) a 5 mm pulmonary nodule is present within the lingula (series 4/image 49) a 4 mm pulmonary nodule is present at the l ingular base (series 4/image 65) a 6 mm pulmonary nodule is present within the lingula (series 4/imag e 46). Mediastinum: Heart size is normal. No pericardial effusion. No large vessel abnormality. No mediastin al adenopathy by size criteria. Bones: No aggressive osseous abnormality. Upper Abdomen: Unremarkable. IMPRESSION: 1. Multiple 4-8 mm pulmonary nodules as above. No prior studies are available for comparison over shelley e. Six-month CT follow-up recommended to ensure stability or resolution. 2. No findings to explain acute thoracic pain. Reviewed by: Heidi Krishna MD on 06/03/2023 9:14 AM PST Approved by: Heidi Krishna MD on 06/03/2023 9:14 AM PST Station ID: [id number]
[2023-06-03 10:23] VITALS: BP 123/78; O2SAT 98
== END 2023-06-03 10:35 | disposition home or self-care (01) ==
LOC: ED 07:47
DX: S29.012A Strain of muscle and tendon of back wall of thorax, initial encounter (principal); X50.0XXA Overexertion from strenuous movement or load, initial encounter
CPT/HCPCS: 71250; 96374; 96375; 96376; 99284; A9270; J1170

== ENCOUNTER 2023-07-31 20:53 | Emergency (ER) | payer OTHER ==
[2023-07-31 21:10] VITALS: O2SAT 98
--- NOTE | 2023-07-31 21:41 | ED Physician Documentation ---
PD HPI MALE - Stated complaint Stated Complaint: PX - Chief complaint Chief Complaint: Abd Pain - History obtained from History obtained from: Patient - Additional information Additional information: HPI from patient. Patient complains of right testicular pain. This pain was first noticed when he woke up this morning. He says he did not have this pain yesterday nor is he had previous such episodes. There is no inciting event, no injury. The pain is worse with movement and palpation. He denies dysuria, denies penile discharge. He is sexually active. Review of Systems Constitutional: denies: Fever, Chills, Sweats GI: denies: Abdominal Pain, Nausea, Vomiting : reports: Testicular pain. denies: Dysuria, Frequency, Discharge Skin: denies: Rash, Lesions Musculoskeletal: denies: Back pain PD PAST MEDICAL HISTORY - Past Medical History Cardiovascular: None Respiratory: None Neuro: None Endocrine/Autoimmune: None GI: GERD : None HEENT: None Psych: None Musculoskeletal: None Derm: None - Past Surgical History Past Surgical History: No - Allergies Allergies/Adverse Reactions: Allergies Allergy/AdvReac Type Severity Reaction Status Date / Time No Known Drug Allergies Allergy Verified 07/31/23 21:54 - Social History Does the pt smoke?: No Smoking Status: Never smoker Does the pt drink ETOH?: No Does the pt have substance abuse?: No - Immunizations Immunizations are current?: Yes - POLST Patient has POLST: No PD ED PE NORMAL - Vitals Vital signs reviewed: Yes - General General: Alert and oriented X 3, No acute distress, Well developed/nourished - Abdomen Abdomen: Soft, Non tender - Back Back: No CVA TTP PD ED PE EXPANDED - Male Male : Normal Exam, Testes descended mercy, Normal lie/cremastaric, Tenderness (generalized right testicular TTP without erythema or obvious swelling). No: Skin lesions, Discharge Results - Vitals Vitals: Vital Signs - 24 hr 07/31/23 07/31/23 20:57 23:09 Temperature 36.5 C Heart Rate 56 L 78 Respiratory 16 16 Rate Blood Pressure 122/72 154/88 H O2 Saturation 98 98 Oxygen O2 Source Room air PD Medical Decision Making - ED course Complexity details: considered differential, d/w patient ED course: Presents with right testicular pain, and he has moderate right testicular tenderness to palpation on exam. He is not in any overt/obvious distress, although he is asking for some Tylenol or ibuprofen for the pain (he is given 600 mg p.o. ibuprofen). Though unlikely, testicular torsion must be considered on the differential and, unfortunately, ultrasound is not available at this hour at [facility] and will not be available again for at least another 8 or 9 hours. I contacted the on-duty ED physician at [facility] emergency department (Dr. Lora); she agrees patient is appropriate for transfer to [facility] ED for evaluation and ultrasound. The reason [facility] was not involved in this process is that, although the likely have ultrasound available at this hour, they do not have urologic services which would be necessary should the ultrasound have evidence of torsion. I discussed this with the patient, and he agrees with transfer to [facility] and is comfortable with going by private vehicle. Departure - Departure Disposition: 02 Transfer Acute Care Hosp Clinical Impression: Testicular pain, right Condition: Good Instructions: ED Testicular Pain UKO Comments: I spoke with the on-duty emergency medicine physician at [facility] in [place]; she agrees that the next appropriate step is for you to drive directly from this emergency department over to the [facility] emergency department in [place] where you will check-in, be reevaluated, and undergo a testicular ultrasound. Forms: PCP List
[2023-07-31] MEDS: IBUPROFEN 600 MG TABLET PO STA (22:51)
[2023-07-31 23:15] VITALS: BP 154/88
== END 2023-07-31 23:15 | disposition short-term general hospital (02) ==
LOC: ED 20:53
DX: N50.811 Right testicular pain (principal)
CPT/HCPCS: 36415; 99285; A9270

== ENCOUNTER 2023-10-30 09:44 | Emergency (ER) | payer OTHER ==
[2023-10-30 09:52] VITALS: O2SAT 99
--- NOTE | 2023-10-30 11:44 | ED Physician Documentation ---
PD HPI BACK PAIN - Stated complaint Stated Complaint: BACK SPASMS/INJURY - Chief complaint Chief Complaint: Back Pain - History obtained from History obtained from: Patient - History of Present Illness Timing - onset: Yesterday Timing - details: Abrupt onset, Still present Location: Upper, Right, Left Quality: Pain, Spasm, Sharp Associated symptoms: No: Fever, Weakness, Numbness Contributing factors: Trauma (he fell backward onto upper back with pain in ribs both sides, occasionally sharp. Hurts to move and breath.) Review of Systems Constitutional: denies: Fever, Chills GI: denies: Abdominal Pain, Vomiting Neurologic: denies: Focal weakness, Numbness, Altered mental status, Headache, Head injury PD PAST MEDICAL HISTORY - Past Medical History Past Medical History: Yes Cardiovascular: None Respiratory: None Neuro: None Endocrine/Autoimmune: None GI: GERD : None HEENT: None Psych: None Musculoskeletal: None Derm: None - Past Surgical History Past Surgical History: No - Present Medications Home Medications: Ambulatory Orders Medication Instructions Recorded Confirmed Ibuprofen [Motrin] 600 mg PO TID PRN #25 tab 10/30/23 Oxycodone HCl/Acetaminophen 1 each PO Q6H PRN #18 tablet 10/30/23 [Percocet 5-325 mg Tablet] methocarbamoL [Robaxin] 500 mg PO Q6H PRN #30 tablet 10/30/23 - Allergies Allergies/Adverse Reactions: Allergies Allergy/AdvReac Type Severity Reaction Status Date / Time No Known Drug Allergies Allergy Verified 10/30/23 09:51 - Social History Does the pt smoke?: No Smoking Status: Never smoker Does the pt drink ETOH?: No Does the pt have substance abuse?: No - Immunizations Immunizations are current?: Yes - POLST Patient has POLST: No PD ED PE NORMAL - Vitals Vital signs reviewed: Yes - General General: Alert and oriented X 3, Well developed/nourished, Other (appears in pain with very notable guarding of ROM for the upper and mid back. ) - Cardiac Cardiac: RRR, No murmur - Respiratory Respiratory: No respiratory distress, Clear bilaterally - Abdomen Abdomen: Soft, Non tender - Back Back: Other (tender in ribs both sides in thoracic area, right more than left, with some midline mid thoracic tenderness as well. Lower back not tender. ) Results - Vitals Vitals: Oxygen O2 Source Room air - Rads (name of study) chest CT Relevant Findings:: Prelim report reviewed (no fractures. Small subcentimer 8 mm nodule in lung unchanged from 5 months ago. ), EMP independent interpretation of test PD Medical Decision Making - ED course Complexity details: re-evaluated patient (pain lessened with IM meds. He was told about no fractures and no organ injury. Prior 8 mm nodule in lung noted 5 months ago is still present, unchanged.), considered differential (fall onto back with rib area pain, dyspnea, pain on breathing and movement. Some pain near flank. Can get CT to eval for organs and osseous. ), d/w patient Departure - Departure Disposition: 01 Home, Self Care Clinical Impression: Fall, accidental, Acute thoracic back pain, Lung nodule seen on imaging study Condition: Stable Record reviewed to determine appropriate education?: Yes Instructions: ED Contusion Back Follow-Up: ADELFO W[place], DO [Primary Care Provider] - Prescriptions: Ibuprofen [Motrin] 600 mg PO TID PRN #25 tab PRN Reason: Pain Oxycodone HCl/Acetaminophen [Percocet 5-325 mg Tablet] 1 each PO Q6H PRN #18 tablet PRN Reason: pain methocarbamoL [Robaxin] 500 mg PO Q6H PRN #30 tablet PRN Reason: Spasms Comments: Your scan picture did not show any rib fractures nor spine fractures or misalignments. No obvious injury to the lungs or kidneys from your fall. You are still having pain back there and can certainly have bruising of the muscles and spasms in such. This will still be sore for several days to a week or more. Also seen on your CT scan were the previously noted nodules in the lung. The radiologist says they are unchanged in size and number without any new ones or enlargements. At this point I would follow-up with your primary care to see if they want any further interval imaging such as in a year or such. For your back, I would do a combination of some heat or warm towels to help with spasming and stiffness. Anti-inflammatory such as ibuprofen 3 times a day with food. Add Tylenol 500 to 650 mg 4 times a day to help with pain as well. Methocarbamol/Robaxin muscle relaxants for stiffness and spasms will be helpful. To that add oxycodone/acetaminophen if needed for worse pain such as you are having currently. I would anticipate this degree of pain to decrease over several days. However it can take even a week or 2 to improve on back injuries. Follow-up with your primary care if not improving readily though in that timeframe. I sent your prescriptions to your preferred pharmacy. Avoid lifting bending stretching etc. with the exception of gentle stretching massage etc. for the current muscles. Nothing too vigorous. I am prescribing a short course of narcotic pain medication for you. These are potentially dangerous and addictive medications that should be used carefully. These medications may constipate you. Take an [id number]-zycpqsb stool softener such as docusate twice daily with plenty of water while taking these medications. If you go 24 hours without a bowel movement, take [id number] MiraLAX, per package instructions. Do not drink or drive while taking these medications. If you received narcotic or sedating medications while in the emergency department do not drive for 24 hours. Store this medication in a safe, secure place and out of reach of children. It is a violation of federal law to give or sell this medication to another person or to use in a manner other than prescribed. The ED will not refill narcotic prescriptions, including prescriptions lost or stolen. You can dispose of unwanted medications at the [facility] office or at several pharmacies such as [facility]. Discharge Date/Time: 10/30/23 14:27
[2023-10-30] MEDS: KETOROLAC 30 MG/ML VIAL IM STA (12:09)
[2023-10-30] MEDS: HYDROmorphone 1 MG/ML CARPUJECT IM STA (12:09)
[2023-10-30] MEDS: ACETAMINOPHEN 325 MG TABLET PO STA (12:10)
[2023-10-30] MEDS: methocarbamoL 500 MG TABLET PO STA (12:10)
--- NOTE | 2023-10-30 13:39 | CT Report ---
PROCEDURE: Chest WO INDICATIONS: fell on back 2 days ago, marked pain right ribs TECHNIQUE: A CT scan of the chest was performed. Intravenous contrast media was not administered. Images were re corded and evaluated at appropriate window settings. Reformats: axial MIP of the chest, coronal and s agittal. For radiation dose reduction, the following was used: automated exposure control, adjustment of mA and/or kV according to patient size. COMPARISON: 06/03/2023. FINDINGS: Image quality: Diagnostic. Chest wall and lower neck: No thyroid nodule which requires sonographic follow up. No axillary or sup raclavicular adenopathy by size. Lungs and pleura: No consolidation. No pleural effusions. No pneumothorax. No suspicious pulmonary n odules which require follow up. Previously described multiple pulmonary nodules measures up to 8 mm i n size in right middle lobe are all unchanged in size and appearance. No new pulmonary nodule is seen . Mediastinum: Heart size is normal. No pericardial effusion. No large vessel abnormality. No mediastin al adenopathy by size criteria. Bones: No aggressive osseous abnormality. No displaced rib fractures are seen. No acute compression f racture or spondylolisthesis in thoracic spine. Upper Abdomen: Unremarkable. IMPRESSION: 1. No acute displaced rib fractures. No acute fracture or dislocation is seen in thorax. 2. Stable bilateral subcentimeter pulmonary nodules measures up to 18 mm in size in right middle lobe . No focal infiltrate, pleural effusion or pneumothorax. 3. No mediastinal or hilar lymphadenopathy. No pericardial effusion. Reviewed by: Kenn Gannon MD on 10/30/2023 1:38 PM PDT Approved by: Kenn Gannon MD on 10/30/2023 1:38 PM PDT Station ID: [id number]
[2023-10-30 13:44] VITALS: BP 140/79
[2023-10-30] MEDS: ACETAMINOPHEN 500 MG TABLET PO STA (14:22)
[2023-10-30] MEDS: oxyCODONE 5 MG TABLET PO STA (14:22)
== END 2023-10-30 14:27 | disposition home or self-care (01) ==
LOC: ED 09:44
DX: M54.6 Pain in thoracic spine (principal); R91.1 Solitary pulmonary nodule; W19.XXXA Unspecified fall, initial encounter
CPT/HCPCS: 71250; 96372; 99284; A9270; J1170